=== PATIENT | female | born 1970 | race Caucasian/White ===

== ENCOUNTER 2017-01-11 10:02 | Inpatient (IN) ==
[2017-01-09 17:58] LABS: Appearance,Urine CLEAR; Bacteria,Urine FEW /hpf (0); Bilirubin,Urine NEG (NEG); Color,Urine YELLOW; Glucose,Urine (UA) >=500 mg/dL (NEG); Leukocyte Esterase,Urine NEG /uL (NEG); Mucus,Urine FEW /hpf (0); Nitrate,Urine NEG (NEG); Protein,Urine NEG (NEG); Specific Gravity,Urine 1.031 (1.000-1.035); Urine Blood NEG mg/dL (<0.03); Urine Budding Yeast MANY /hpf (0); Urine RBC 1 /hpf (0-1); Urine Squamous Epithelial Cell 3 /hpf (0-4); Urine WBC 1 /hpf (0-4); Urobilinogen,Urine NEG (NEG)
[2017-01-09 18:44] LABS: Basophils # (Auto) 0 K/mcL (0.0-0.3); Basophils % (Auto) 0.3 % (0.0-2.0); Eosinophils # (Auto) 0.2 K/mcL (0.0-0.7); Eosinophils % (Auto) 1.7 % (0.0-7.0); Granulocytes % (Auto) 65.5 % (38.0-78.0); Lymphocytes # (Auto) 2.7 K/mcL (1.5-4.8); Lymphocytes % (Auto) 25.9 % (15.5-49.0); Mean Corpuscular HGB Conc 33.1 g/dL (31.0-36.0); Mean Corpuscular Hemoglobin 29.2 pg (26.0-34.0); Monocytes # (Auto) 0.7 K/mcL (0.1-0.9); Monocytes % (Auto) 6.6 % (1.0-12.0); Platelet Count 340 K/mcL (140-440); RBC 4.56 M/mcL (4.00-5.20); Red Cell Distribution Width 13.6 % (11.5-14.5)
[2017-01-09 18:49] LABS: Blood Urea Nitrogen 13 mg/dl (6-20)
[~2017-01-11 10:02] MED LIST: ACETAMINOPHEN 500 MG TABLET PO SCH; PREGABALIN 150 MG CAPSULE PO SCH; oxyCODONE 10 MG TAB.ER.12H PO SCH
[2017-01-11] MEDS ORDERED: DEXTROSE 50% 50 ML VIAL IV ONE ×2 (12:42→12:45)
[2017-01-11] MEDS ORDERED: ceFAZolin 1 GM VIAL IV SCH (14:30)
[2017-01-11] MEDS ORDERED: ONDANSETRON 4 MG/2 ML VIAL IV PRN ×2 (15:11→16:20)
[2017-01-11] MEDS ORDERED: TEMAZEPAM 15 MG CAPSULE PO PRN (15:11)
[2017-01-11] MEDS ORDERED: TRANEXAMIC ACID 1,000 MG/10 ML VIAL IV ONE ×2 (15:11→15:15)
[2017-01-11] MEDS ORDERED: POLYETHYLENE GLYCOL 3350 17 GM PACKET PO PRN (15:11)
[2017-01-11] MEDS ORDERED: BISACODYL 10 MG SUPP.RECT PR PRN (15:11)
[2017-01-11] MEDS ORDERED: ACETAMINOPHEN 325 MG TABLET PO PRN (15:11)
[2017-01-11] MEDS ORDERED: BENZOCAINE/MENTHOL 1 LOZENGE PO PRN ×2 (15:11→16:20)
[2017-01-11] MEDS ORDERED: MAGNESIUM HYDROXIDE 30 ML ORAL.SUSP PO PRN (15:11)
[2017-01-11] MEDS ORDERED: FLEETS ADULT ENEMA PR PRN (15:11)
[2017-01-11] MEDS ORDERED: MIDAZOLAM 5 MG/5 ML VIAL IV ONE (15:15)
[2017-01-11] MEDS ORDERED: PROPOFOL 200 MG/20 ML VIAL IV ONE (15:15)
[2017-01-11] MEDS ORDERED: ONDANSETRON 4 MG/2 ML VIAL IV ONE (15:15)
[2017-01-11] MEDS ORDERED: DEXAMETHASONE 10 MG/ML VIAL IV ONE (15:15)
[2017-01-11] MEDS ORDERED: LIDOCAINE HCL/PF 100 MG/5 ML SYRINGE IV ONE (15:15)
[2017-01-11] MEDS ORDERED: fentaNYL 100 MCG/2 ML VIAL IV ONE (15:15)
[2017-01-11] MEDS ORDERED: SUCCINYLCHOLINE 20 MG/ML ML IV ONE (15:15)
--- NOTE | 2017-01-11 15:19 | Brief Operative Note ---
Date of procedure: 01/11/17 Pre-op diagnosis: right hip djd Post-op diagnosis: same Procedure: right gilberto Grafts/Implants: Yes Anesthesia: GETA Complications Description: 01/11/17 15:18 none Surgeon: Cortes Rivera It Analyst: Roger David Estimated blood loss (cc): 20 Tourniquet Time (Minutes): 54 Specimens Removed/Pathology: none sent Condition: stable Disposition: PACU
[2017-01-11] MEDS ORDERED: GENTAMICIN SULFATE 800 MG/20 ML VIAL IR ONE (16:01)
[2017-01-11] MEDS ORDERED: PROMETHAZINE 25 MG/ML VIAL IV PRN (16:20)
[2017-01-11] MEDS ORDERED: PROMETHAZINE 25 MG/ML VIAL IM ONE (16:20)
[2017-01-11] MEDS ORDERED: IPRATROPIUM/ALBUTEROL 3 ML AMPUL.NEB NEB PRN (16:20)
[2017-01-11] MEDS ORDERED: ePHEDrine 50 MG/ML AMPUL IV PRN (16:20)
[2017-01-11] MEDS ORDERED: FLUMAZENIL 0.1 MG/ML ML IV PRN (16:20)
[2017-01-11] MEDS ORDERED: MEPERIDINE 25 MG/ML SYRINGE IV PRN (16:20)
[2017-01-11] MEDS ORDERED: NALOXONE HCL 0.4 MG/ML VIAL IV PRN (16:20)
[2017-01-11] MEDS ORDERED: HYDROmorphone 2 MG/ML SYRINGE IV PRN (16:20)
[2017-01-11] MEDS ORDERED: METOPROLOL TARTRATE 5 MG/5 ML VIAL IV PRN (16:20)
[2017-01-11] MEDS ORDERED: MEPERIDINE 50 MG/ML SYRINGE IM ONE (16:20)
[2017-01-11] MEDS ORDERED: METHOCARBAMOL 1,000 MG/10 ML VIAL IV PRN (16:20)
[2017-01-11] MEDS ORDERED: diphenhydrAMINE 50 MG/ML VIAL IV PRN (16:20)
[2017-01-11] MEDS ORDERED: ATROPINE SULFATE 0.4 MG/ML VIAL IV PRN (16:20)
[2017-01-11] MEDS: fentaNYL 100 MCG/2 ML VIAL IV PRN ×4 (18:24→18:40)
[2017-01-11] MEDS: INSULIN LISPRO 1 UNIT/0.01 ML UNIT SQ SCH ×2 (19:14→22:12)
[2017-01-11] MEDS: LACTATED RINGERS 1,000 ML IV SCH (19:15)
[2017-01-11] MEDS: 0.45 % SODIUM CHLORIDE 1,000 ML IV SCH (19:19)
[2017-01-11] MEDS: HYDROmorphone 2 MG/ML SYRINGE IV PRN ×3 (19:20→23:28)
[2017-01-11] MEDS: PREGABALIN 150 MG CAPSULE PO SCH (20:03)
[2017-01-11] MEDS: DOCUSATE SODIUM 100 MG CAPSULE PO SCH (20:03)
[2017-01-11] MEDS: ASPIRIN 325 MG ENTERIC COATED TABLET PO SCH (20:03)
[2017-01-11] MEDS: HYDROcodone/APAP 10/325MG TABLET PO PRN ×2 (20:03→23:57)
[2017-01-11] MEDS: PANTOPRAZOLE 40 MG TABLET PO SCH (20:03)
[2017-01-11] MEDS: metFORMIN 500 MG TABLET PO SCH ×2 (20:05→22:13)
[2017-01-11] MEDS: POTASSIUM CHLORIDE 10 MEQ TABLET PO SCH (20:06)
[2017-01-11] MEDS: GEMFIBROZIL 600 MG TABLET PO SCH (21:23)
[2017-01-11] MEDS: FISH OIL 1,000 MG CAPSULE PO SCH (21:23)
[2017-01-11] MEDS: MULTIVIT,THER IRON,CA,FA & MIN 1 TABLET PO SCH (21:23)
[2017-01-11] MEDS: KETOROLAC 15 MG/ML VIAL IV PRN (21:24)
[2017-01-11] MEDS: traMADol 50 MG TABLET PO PRN (21:24)
[2017-01-11] MEDS: SENNOSIDES 1 TABLET PO SCH (21:28)
[2017-01-11] MEDS: METOPROLOL TARTRATE 50 MG TABLET PO SCH (22:03)
[2017-01-11] MEDS: 0.9 % SODIUM CHLORIDE 10 ML SYRINGE IV SCH (22:12)
[2017-01-11] MEDS: ceFAZolin 1 GM VIAL IV SCH (22:58)
[2017-01-11] MEDS: METHOCARBAMOL 500 MG TABLET PO PRN (23:30)
[2017-01-12] MEDS: 0.45 % SODIUM CHLORIDE 1,000 ML IV SCH ×4 (01:25→21:20)
[2017-01-12] MEDS: HYDROmorphone 2 MG/ML SYRINGE IV PRN ×2 (01:47→03:40)
[2017-01-12] MEDS: LACTATED RINGERS 1,000 ML IV SCH (02:10)
[2017-01-12] MEDS: KETOROLAC 15 MG/ML VIAL IV PRN ×4 (03:41→22:36)
[2017-01-12] MEDS: HYDROcodone/APAP 10/325MG TABLET PO PRN ×5 (04:56→23:36)
[2017-01-12] MEDS: traMADol 50 MG TABLET PO PRN (05:34)
[2017-01-12] MEDS: METHOCARBAMOL 500 MG TABLET PO PRN ×3 (05:35→19:48)
[2017-01-12] MEDS: 0.9 % SODIUM CHLORIDE 10 ML SYRINGE IV SCH ×3 (05:35→20:20)
[2017-01-12] MEDS: LEVOTHYROXINE 50 MCG TABLET PO SCH (07:39)
[2017-01-12] MEDS: ceFAZolin 1 GM VIAL IV SCH (07:39)
[2017-01-12] MEDS: POTASSIUM CHLORIDE 10 MEQ TABLET PO SCH ×2 (07:39→17:19)
[2017-01-12] MEDS: GEMFIBROZIL 600 MG TABLET PO SCH ×2 (07:39→17:19)
[2017-01-12] MEDS: metFORMIN 500 MG TABLET PO SCH ×2 (07:39→17:19)
[2017-01-12] MEDS: PANTOPRAZOLE 40 MG TABLET PO SCH ×2 (07:39→17:19)
[2017-01-12] MEDS: INSULIN LISPRO 1 UNIT/0.01 ML UNIT SQ SCH ×8 (07:40→19:49)
--- NOTE | 2017-01-12 07:51 | XRay Report ---
HISTORY: Reason for Exam:Post-Op Total Hip FINDINGS: There is a well-positioned right total hip prosthesis. There is no fracture or abnormal soft tissue calcification around the joint. Bilateral fallopian tube clamps are present in the pelvis. Mild arthritis is present at the symphysis pubis. IMPRESSION: Well-positioned right hip prosthesis Interpreted and Authenticated by: Oumar Sethi 01/12/17
[2017-01-12] MEDS: ASPIRIN 325 MG ENTERIC COATED TABLET PO SCH ×2 (08:36→20:19)
[2017-01-12] MEDS: METOPROLOL TARTRATE 50 MG TABLET PO SCH ×2 (08:37→20:19)
[2017-01-12] MEDS: FISH OIL 1,000 MG CAPSULE PO SCH ×2 (08:37→20:19)
[2017-01-12] MEDS: DOCUSATE SODIUM 100 MG CAPSULE PO SCH ×2 (08:37→20:20)
[2017-01-12] MEDS: PREGABALIN 150 MG CAPSULE PO SCH ×3 (08:37→20:19)
[2017-01-12] MEDS ORDERED: INSULIN GLARGINE HUM REC ANLOG SC SCH (09:00)
[2017-01-12] MEDS ORDERED: SPIRONOLACTONE 25 MG TABLET PO SCH (09:00)
[2017-01-12] MEDS ORDERED: LOSARTAN 50 MG TABLET PO SCH (09:00)
[2017-01-12] MEDS ORDERED: LOVASTATIN 20 MG TABLET PO SCH (09:00)
[2017-01-12] MEDS ORDERED: HYDROCODONE BITARTRATE 60 MG PO SCH (09:00)
--- NOTE | 2017-01-12 09:22 | Orthopedic Progress Note ---
Subjective Patient information: Note initiated : 01/12/17 at 9:19 am Service Date, if different from initiated Date: [] Patient: Genie Li 46 y/o F admitted on 01/11/17 for Right Total HIp Arthroplasty. Chief Complaint: [ambulated very well and pain is 4 out of 10 ] Objective Vital signs: Vital Signs Temp Pulse Pulse Pulse Resp BP BP 01/12/17 07:58 98.0 F 16 01/12/17 07:20 72 01/12/17 03:25 98.1 F 75 16 01/12/17 00:00 99.0 F 96 H 24 150/91 01/11/17 23:00 01/11/17 19:12 69 24 130/87 01/11/17 19:00 01/11/17 18:55 84 26 H 127/80 01/11/17 18:45 98.4 F 84 91 H 16 140/76 112/70 01/11/17 18:35 98.4 F 91 H 91 H 16 140/92 112/70 01/11/17 18:20 98.4 F 91 H 92 H 16 139/80 112/70 01/11/17 18:10 98.4 F 91 H 95 H 16 120/68 112/70 01/11/17 18:05 98.4 F 91 H 93 H 16 123/71 112/70 01/11/17 18:00 98.4 F 91 H 91 H 16 111/71 112/70 01/11/17 17:55 98.4 F 75 95 H 16 110/61 112/70 01/11/17 12:00 97.9 F 74 16 108/76 01/11/17 10:30 97.3 F L 75 16 120/82 BP BP Pulse Ox 01/12/17 07:58 126/77 96 01/12/17 07:20 96 01/12/17 03:25 102/67 94 01/12/17 00:00 95 01/11/17 23:00 95 01/11/17 19:12 100 01/11/17 19:00 100 01/11/17 18:55 100 01/11/17 18:45 99 01/11/17 18:35 99 01/11/17 18:20 100 01/11/17 18:10 99 01/11/17 18:05 100 01/11/17 18:00 100 01/11/17 17:55 100 01/11/17 12:00 97 01/11/17 10:30 95 Intake and Output 01/11/17 01/12/17 01/12/17 21:59 05:59 13:59 Intake Total 2600 / 2600 4200 / 4200 1600 / 1600 Output Total 2150 / 2150 700 / 700 Balance 2600 / 2600 2050 / 2050 900 / 900 Intake: IV 1000 / 1000 Sodium Chloride 0.45% 1, 1000 / 1000 000 ml @ 100 mls/hr IV . Q10H CHRISTINE Rx#:[id number] Oral 2600 / 2600 3200 / 3200 1600 / 1600 Output: Void Amount 2150 / 2150 700 / 700 Other: # Voids 1 Weight 265 lb Intake & Output: Intake & Output 01/11/17 01/12/17 01/12/17 21:59 05:59 13:59 Intake Total 2600 / 2600 4200 / 4200 1600 / 1600 Output Total 2150 / 2150 700 / 700 Balance 2600 / 2600 2050 / 2050 900 / 900 Weight 265 lb Intake: IV 1000 / 1000 Sodium Chloride 0.45% 1, 1000 / 1000 000 ml @ 100 mls/hr IV . Q10H CHRISTINE Rx#:[id number] Oral 2600 / 2600 3200 / 3200 1600 / 1600 Output: Void Amount 2150 / 2150 700 / 700 Other: # Voids 1 Incision: Yes healing Incision clean and dry: Yes Dressing: Yes clean Weight bearing status: full Neurological exam IM: Yes oriented X3, Yes neurovascular intact Extremities exam IM: Yes Foot pink and warm, Yes neurovascular intact - Labs CBC & BMP: 01/12/17 05:21 01/09/17 17:04 Labs: 01/12/17 01/09/17 05:21 17:04 Hgb 13.3 Hct 30.9 L 40.1
--- NOTE | 2017-01-12 09:25 | Discharge Summary ---
Ortho Discharge - TKA - Patient Instructions Diet: Regular Diet Activity: activity as tolerated, weight bearing as tolerated Total Knee Protocol: For Total Knee: Start ROM HARRIS with stationary bike or rocking chair. Work on gaining full extension of knee. Posterior dislocation precautions provided. Hip abductor strengthening and gait training instructions provided. Apply Cryocuff as instructed. Dressing Care: Aquacel Ag - leave on for 5 days Patient Education: Total Hip Replacement (DC) - Follow Up Plan Follow Up Appointments: Jose Alberto Hutton PA-C [Physician Torque Tester] - 01/24/17 1:00 pm Disposition: Home, Self-Care Prognosis: Good Rehab Potential: Good I certify that the patient requires SNF services: No Overall status at discharge: patient is progressing back to baseline - Orders For Discharge Additional Discharge Orders: Physical Therapy at Discharge - TKA Location: Determined By Patient Toilet Riser Discharge Order Location: Determined By Patient Walker Location: Determined By Patient
[2017-01-12] MEDS ORDERED: DEXTROSE 50% 50 ML VIAL IV PRN (11:26)
[2017-01-12] MEDS: MULTIVIT,THER IRON,CA,FA & MIN 1 TABLET PO SCH (20:19)
[2017-01-12] MEDS: SENNOSIDES 1 TABLET PO SCH (20:20)
[2017-01-13] MEDS: HYDROcodone/APAP 10/325MG TABLET PO PRN ×4 (03:41→16:53)
[2017-01-13] MEDS: METHOCARBAMOL 500 MG TABLET PO PRN (03:41)
[2017-01-13] MEDS: KETOROLAC 15 MG/ML VIAL IV PRN ×2 (05:36→12:53)
[2017-01-13] MEDS: 0.9 % SODIUM CHLORIDE 10 ML SYRINGE IV SCH ×2 (05:37→14:12)
[2017-01-13] MEDS: LEVOTHYROXINE 50 MCG TABLET PO SCH (06:37)
[2017-01-13] MEDS: PANTOPRAZOLE 40 MG TABLET PO SCH (06:37)
[2017-01-13] MEDS: INSULIN LISPRO 1 UNIT/0.01 ML UNIT SQ SCH ×4 (07:47→11:44)
[2017-01-13] MEDS: GEMFIBROZIL 600 MG TABLET PO SCH (07:51)
[2017-01-13] MEDS: metFORMIN 500 MG TABLET PO SCH (07:52)
[2017-01-13] MEDS: POTASSIUM CHLORIDE 10 MEQ TABLET PO SCH (07:52)
[2017-01-13] MEDS ORDERED: LOSARTAN 50 MG TABLET PO SCH (08:00)
[2017-01-13] MEDS ORDERED: HYDROCODONE BITARTRATE 60 MG PO SCH (08:00)
[2017-01-13] MEDS ORDERED: INSULIN GLARGINE HUM REC ANLOG SC SCH ×2 (08:00→09:00)
[2017-01-13] MEDS ORDERED: LOVASTATIN 20 MG TABLET PO SCH (08:00)
[2017-01-13] MEDS ORDERED: SPIRONOLACTONE 25 MG TABLET PO SCH (08:00)
[2017-01-13] MEDS: DOCUSATE SODIUM 100 MG CAPSULE PO SCH (08:07)
[2017-01-13] MEDS ORDERED: INSULIN GLARGINE SQ SCH (09:00)
[2017-01-13] MEDS: FISH OIL 1,000 MG CAPSULE PO SCH (09:03)
[2017-01-13] MEDS: PREGABALIN 150 MG CAPSULE PO SCH ×2 (09:03→15:29)
[2017-01-13] MEDS: METOPROLOL TARTRATE 50 MG TABLET PO SCH (09:04)
[2017-01-13] MEDS: ASPIRIN 325 MG ENTERIC COATED TABLET PO SCH (09:04)
--- NOTE | 2017-01-14 09:38 | Operative Note ---
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 PROCEDURE: Right total hip arthroplasty. SURGEON: Cortes Rivera MD. TEST SKEIN WINDER: Rodríguez David PA-C. ANESTHESIA: General LMA anesthesia. COMPLICATIONS: None. DESCRIPTION OF PROCEDURE: The patient was brought to the operating room and put to sleep with general LMA anesthesia. Once asleep, the patient had the right hip sterilely prepped in a left lateral position. We made a superior posterior approach through this. Prior to the incision we confirmed the operative site. Preop antibiotics had been given. Tranexamic acid had been given. We went through the fatty layer about 3 inches, incised through the gluteal medius and dislocated the hip after releasing the superior capsule. Once done, we then made the neck cut at 32 mm from the center of hip rotation. We reamed up the hip to a size 50, implanted a 50 cup with one 30 mm screw. We then broached up the femur to a size 3 stem. We took pictures. It appeared that it was slightly longer. We repositioned the cup by reaming more medial. Because of the hip dysplasia it did not cover the cup well. We seated the cup very nicely and then placed a 30 mm screw, in 20 degrees of anteversion and 40 degrees of inclination. Once this was done, we then placed the final implant. Stem was a size 3 stem with a neutral neck length, ceramic. The patient tolerated this well without complication. We closed the fascial layer with stitches and the skin with two layers of stitches. Sterile bandage applied. 3-0 Monocryl for the skin. RBH:elkin Job ID: [id number] Doc ID: [id number] Cortes Rivera MD
== END 2017-01-13 17:00 | disposition home or self-care (01) | DRG 470 ==
LOC: MEDSUR 10:02
PROVIDERS: ADMIT Orthopaedic Surgery; ATTEND Orthopaedic Surgery

== ENCOUNTER 2019-08-01 16:32 | Observation (INO) ==
[2019-08-01] MEDS ORDERED: IOPAMIDOL 100 ML BOTTLE IV ONE (16:33)
[2019-08-01] MEDS ORDERED: ONDANSETRON 4 MG/2 ML VIAL IV ONE ×2 (16:57→20:31)
[2019-08-01] MEDS ORDERED: 0.9 % SODIUM CHLORIDE 1,000 ML IV ONE ×2 (16:57→19:07)
--- NOTE | 2019-08-01 17:01 | Emergency Department Note ---
Nausea/Vomiting/Diarrhea HPI - General Chief complaint: Nausea/Vomiting/Diarrhea Stated complaint: Diarrhea Time Seen by Provider: 08/01/19 16:50 Source: patient Mode of arrival: ambulatory Limitations: no limitations - History of Present Illness HPI Narrative: 49-year-old female is been having belly pain nausea vomiting diarrhea since this morning. She started having crampy belly pain yesterday but this morning she was having watery diarrhea as well as clear emesis. No new foods but she has been around her sick grandchildren. She notes that she is an insulin-dependent diabetic with known gastroparesis - Related Data Home Medications Medication Instructions Recorded Confirmed Insulin Lispro [HumaLOG] 0 unit SQ ACHS 01/09/17 08/01/19 Levothyroxine [Synthroid] 50 mcg PO ACB 01/09/17 08/01/19 Losartan [Cozaar] 100 mg PO DAILY 01/09/17 08/01/19 Methocarbamol [Robaxin] 500 mg PO QIDP PRN 01/09/17 08/01/19 Metoprolol Tartrate [Lopressor] 50 mg PO BID 01/09/17 08/01/19 Multivit,Th Iron,Other Min 3 tab PO HS 01/09/17 01/11/17 [Complete Multivitamin] [place]-3 Fatty Acids/Fish Oil 3 cap PO BID 01/09/17 08/01/19 [[place] 3 Fish Oil Softgel] Potassium Chloride 10 meq PO BIDCC 01/09/17 08/01/19 Spironolactone [Aldactone] 25 mg PO DAILY 01/09/17 08/01/19 metFORMIN [Glucophage] 500 mg PO DAILY 01/09/17 08/01/19 Toujeo Solostar 80 units SQ DAILY 12/29/17 08/01/19 Gabapentin [Neurontin] 900 mg PO TID 10/03/18 08/01/19 traMADol [Ultram] 100 mg TID 10/03/18 08/01/19 lovastatin 20 mg tablet 20 mg PO QHS tab 07/17/19 08/01/19 Hysingla ER 60 mg DAILY 08/01/19 08/01/19 Omeprazole [PriLOSEC] 20 mg PO DAILY 08/01/19 08/01/19 Ondansetron [Zofran ODT] 8 mg SL Q4-6HP PRN 08/01/19 08/01/19 Allergies Allergy/AdvReac Type Severity Reaction Status Date / Time sucralfate [From Carafate] Allergy Mild Hives Verified 05/18/19 15:05 dexlansoprazole AdvReac Intermediate Vomiting Verified 05/18/19 15:05 [From Dexilant] sumatriptan [From Imitrex] AdvReac Intermediate Vomiting Verified 05/18/19 15:05 Amoxicillin [From Augmentin] AdvReac Mild Rash Verified 05/18/19 15:05 atorvastatin AdvReac Mild Rash Verified 05/18/19 15:05 Azelastine [From Astelin] AdvReac Mild Rash Verified 05/18/19 15:05 buprenorphine [From Butrans] AdvReac Mild Hives Verified 05/18/19 15:05 clavulanic acid AdvReac Mild Rash Verified 05/18/19 15:05 [From Augmentin] Cyclobenzaprine AdvReac Mild Vomiting Verified 05/18/19 15:05 [From Flexeril] iron AdvReac Mild Hives Verified 05/18/19 15:05 morphine AdvReac Mild Vomiting Verified 05/18/19 15:05 oxycodone [Oxycodone] AdvReac Mild Itching Verified 05/18/19 15:05 Sulfa (Sulfonamide AdvReac Mild Itching Verified 05/18/19 15:05 Antibiotics) Review of Systems All systems ED: reviewed and negative except as stated. Past Medical History - Past Medical History Attestation: Yes: The following information was validated with the patient. [facility] Narrative: Medical History (Last Updated 05/18/19 @ 15:23 by Kamari Diallo DO) Abdominal pain (Resolved) Atypical chest pain (Resolved) Medical history: Reports: chronic narcotics, DM (With neuropathy and gastroparesis), fibromyalgia, hyperlipidemia, hypertension, hypothyroidism, migraine Psychiatric history: Reports: anxiety, depression Surgical history ED: Reports: breast surgery (Reduction), hysterectomy, orthopedic, other (Cervical spine fusion, bilateral carpal tunnel, bilateral bunions, total hip, shoulder), other (Lasik eye surgery) - Social History smoking status: Former smoker Alcohol use: Reports: Rarely Drug use: Reports: none Physical Exam Obese female. Normocephalic atraumatic. Conjunctive are clear sclera white nonicteric. No nasal discharge or congestion. Oropharynx pink and moist. Neck is supple without lymphadenopathy but she might have a mild goiter. No carotid bruit. Heart is regular rate and rhythm no murmur appreciated. Lungs clear to auscultation bilaterally without wheezes rales rhonchi or respiratory distress. Abdomen is diffusely tender but worse in the epigastrium. Some guarding. Alert and able to answer questions appropriately. Limitations: no limitations Course Vital Signs Temperature 97.9 F 08/01/19 16:32 Pulse Rate 101 H 08/01/19 16:32 Respiratory Rate 28 H 08/01/19 16:32 Blood Pressure 119/82 08/01/19 16:32 Pulse Oximetry (%) 98 08/01/19 16:32 Temperature 97.9 F 08/01/19 16:32 Pulse Rate 97 H 08/01/19 21:49 Respiratory Rate 12 08/01/19 21:01 Blood Pressure 149/91 08/01/19 21:39 Pulse Oximetry (%) 100 08/01/19 21:49 Nausea/Vomiting/Diarrhea - Lab Data Lab results reviewed: Yes I reviewed the patient's lab results. Result diagrams: 08/01/19 17:36 08/01/19 17:36 Lab Results 08/01/19 08/01/19 08/01/19 Range/Units 17:30 17:36 17:36 WBC 8.6 (4.5-11.0) K/mcL RBC 5.10 (4.00-5.20) M/mcL Hgb 15.1 H (12.0-15.0) g/dL Hct 45.0 (36.0-48.0) % POC Hct 46.0 (36.0-48.0) % MCV 88.2 (80.0-100.0) fL MCH 29.7 (26.0-34.0) pg MCHC 33.7 (31.0-36.0) g/dL RDW 12.8 (11.5-14.5) % Plt Count 276 (140-440) K/mcL MPV 8.1 (7.4-10.4) fL Gran % 84.7 H (38.0-78.0) % Lymph % (Auto) 10.4 L (15.5-49.0) % [place] % (Auto) 4.6 (1.0-12.0) % Eos % (Auto) 0.1 (0.0-7.0) % Baso % (Auto) 0.2 (0.0-2.0) % Gran # 7.3 (1.8-8.0) K/mcL Lymph # (Auto) 0.9 L (1.5-4.8) K/mcL [place] # (Auto) 0.4 (0.1-0.9) K/mcL Eos # (Auto) 0 (0.0-0.7) K/mcL Baso # (Auto) 0 (0.0-0.3) K/mcL VBG Lactic Acid (0.5-2.0) mmol/L POC Sodium 141 (133-145) mmol/L Sodium 141 (133-145) mmol/L POC Potassium 3.6 (3.3-5.1) mmol/L Potassium 3.7 (3.3-5.1) mmol/L POC Chloride 106 (96-108) mmol/L Chloride 101 (96-108) mmol/L Carbon Dioxide 18 L (22-30) mmol/L POC Total CO2 19 L (22-30) mmol/L Anion Gap 22.0 H (8-16) POC BUN 11 (6-20) mg/dl BUN 11 (6-20) mg/dl Creatinine 0.7 (0.6-1.1) mg/dl POC Creatinine 0.6 (0.6-1.1) mg/dl GFR Calculation 100 Glucose 159 H (70-105) mg/dL POC Glucose 160 H (70-105) mg/dL Calcium 9.8 (8.6-10.4) mg/dl POC WB Ioniz Calcium 1.12 L (1.16-1.32) mmol/L Total Bilirubin 1.0 (0.0-1.0) mg/dL AST 50 H (0-37) U/l ALT 64 H (0-40) U/l Alkaline Phosphatase 93 (39-117) U/L Total Protein 8.2 (5.9-8.4) gm/dL Albumin 4.8 (3.2-5.2) gm/dL Globulin 3.4 (2.2-3.7) gm/dL Albumin/Globulin Ratio 1.4 (1.0-2.3) Amylase 43 (28-100) U/L Lipase 26 (7-60) U/L Urine Color Yellow Urine Appearance Clear Urine pH 5.0 (5.0-9.0) Ur Specific [place] 1.036 H (1.000-1.035) Urine Protein 100 A (NEG) mg/dL Urine Glucose (UA) >=500 A (NEG) mg/dL Urine Ketones 80 A (NEG) mg/dL Urine Occult Blood Neg (<0.03) mg/dL Urine Nitrate Neg (NEG) Urine Bilirubin Neg (NEG) mg/dL Urine Urobilinogen Neg (NEG) mg/dL Ur Leukocyte Esterase Neg (NEG) /uL Urine RBC 1 (0-1) /hpf Urine WBC 1 (0-4) /hpf Ur Squamous Epith Cells 4 (0-4) /hpf Urine Bacteria Few A (0) /hpf Urine Mucus Few (0) /hpf Urine Yeast (Budding) Few A (0) /hpf Ur Culture Indicated? Yes 08/01/19 Range/Units 17:36 WBC (4.5-11.0) K/mcL RBC (4.00-5.20) M/mcL Hgb (12.0-15.0) g/dL Hct (36.0-48.0) % POC Hct (36.0-48.0) % MCV (80.0-100.0) fL MCH (26.0-34.0) pg MCHC (31.0-36.0) g/dL RDW (11.5-14.5) % Plt Count (140-440) K/mcL MPV (7.4-10.4) fL Gran % (38.0-78.0) % Lymph % (Auto) (15.5-49.0) % [place] % (Auto) (1.0-12.0) % Eos % (Auto) (0.0-7.0) % Baso % (Auto) (0.0-2.0) % Gran # (1.8-8.0) K/mcL Lymph # (Auto) (1.5-4.8) K/mcL [place] # (Auto) (0.1-0.9) K/mcL Eos # (Auto) (0.0-0.7) K/mcL Baso # (Auto) (0.0-0.3) K/mcL VBG Lactic Acid 2.2 H (0.5-2.0) mmol/L POC Sodium (133-145) mmol/L Sodium (133-145) mmol/L POC Potassium (3.3-5.1) mmol/L Potassium (3.3-5.1) mmol/L POC Chloride (96-108) mmol/L Chloride (96-108) mmol/L Carbon Dioxide (22-30) mmol/L POC Total CO2 (22-30) mmol/L Anion Gap (8-16) POC BUN (6-20) mg/dl BUN (6-20) mg/dl Creatinine (0.6-1.1) mg/dl POC Creatinine (0.6-1.1) mg/dl GFR Calculation Glucose (70-105) mg/dL POC Glucose (70-105) mg/dL Calcium (8.6-10.4) mg/dl POC WB Ioniz Calcium (1.16-1.32) mmol/L Total Bilirubin (0.0-1.0) mg/dL AST (0-37) U/l ALT (0-40) U/l Alkaline Phosphatase (39-117) U/L Total Protein (5.9-8.4) gm/dL Albumin (3.2-5.2) gm/dL Globulin (2.2-3.7) gm/dL Albumin/Globulin Ratio (1.0-2.3) Amylase (28-100) U/L Lipase (7-60) U/L Urine Color Urine Appearance Urine pH (5.0-9.0) Ur Specific [place] (1.000-1.035) Urine Protein (NEG) mg/dL Urine Glucose (UA) (NEG) mg/dL Urine Ketones (NEG) mg/dL Urine Occult Blood (<0.03) mg/dL Urine Nitrate (NEG) Urine Bilirubin (NEG) mg/dL Urine Urobilinogen (NEG) mg/dL Ur Leukocyte Esterase (NEG) /uL Urine RBC (0-1) /hpf Urine WBC (0-4) /hpf Ur Squamous Epith Cells (0-4) /hpf Urine Bacteria (0) /hpf Urine Mucus (0) /hpf Urine Yeast (Budding) (0) /hpf Ur Culture Indicated? - Radiology Data Radiology results reviewed: Yes I reviewed the patient's radiology results. CT scan of the abdomen and pelvis with contrast shows no acute cause for her nausea vomiting/belly pain Disposition Pt seen by TRAINING AND DEVELOPMENT SPECIALIST/PA only: No Clinical Impression: Dehydration, Gastroparesis diabeticorum, Candidal urinary tract infection UTI (urinary tract infection) Qualifiers: Urinary tract infection type: acute cystitis Hematuria presence: without hematuria Qualified Code(s): N30.00 - Acute cystitis without hematuria Summary: Start IV fluids nausea medicine. Get CT scan and laboratory Laboratory shows UTI with both bacteria and yeast. Start fluconazole and Rocephin given her nausea and vomiting and inability to tolerate oral antibiotics. Urine with elevated specific gravity (1.036) indicating dehydration likely from nausea and vomiting which in turn is from her gastroparesis plus or minus acute infection. She continued to have belly pain nausea. I discussed results with her. She is not feeling well enough to go home continues to have significant nausea and pain. Try Reglan After getting 2 doses of Zofran and 1 dose of Reglan she was still having significant belly pain so I discussed the case with our hospitalist, Dr. Grant, he recommended we try low-dose ketamine. If she did not tolerate that or if this was not successful he would admit for observation for further care and evaluation After getting the ketamine she had some dysphoria so we gave her 2 mg of Versed. I contacted our hospitalist again. He agreed to come in and evaluate the patient and admit for further evaluation and care in the hospital Disposition: Xfer As Outpt/Obs ([facility]) Condition: Fair Referrals: Janet Allen [Primary Care Provider] -
[2019-08-01] MEDS: HYDROmorphone 2 MG/ML VIAL IV PRN ×3 (17:31→20:37)
[2019-08-01 17:48] LABS: POC Blood Urea Nitrogen 11 mg/dl (6-20); POC CO2 19 mmol/L (22-30); POC Calcium, Ionized 1.12 mmol/L (1.16-1.32); POC Chloride 106 mmol/L (96-108); POC Creatinine 0.6 mg/dl (0.6-1.1); POC Glucose, Random 160 mg/dL (70-105); POC Potassium 3.6 mmol/L (3.3-5.1); POC Sodium 141 mmol/L (133-145)
[2019-08-01 18:25] LABS: Basophils # (Auto) 0 K/mcL (0.0-0.3); Basophils % (Auto) 0.2 % (0.0-2.0); Eosinophils # (Auto) 0 K/mcL (0.0-0.7); Eosinophils % (Auto) 0.1 % (0.0-7.0); Granulocytes % (Auto) 84.7 % (38.0-78.0); Hemoglobin 15.1 g/dL (12.0-15.0); Lymphocytes # (Auto) 0.9 K/mcL (1.5-4.8); Lymphocytes % (Auto) 10.4 % (15.5-49.0); Mean Cell Volume 88.2 fL (80.0-100.0); Mean Corpuscular HGB Conc 33.7 g/dL (31.0-36.0); Mean Platelet Volume 8.1 fL (7.4-10.4); Monocytes # (Auto) 0.4 K/mcL (0.1-0.9); Monocytes % (Auto) 4.6 % (1.0-12.0); Platelet Count 276 K/mcL (140-440); Red Cell Distribution Width 12.8 % (11.5-14.5); WBC 8.6 K/mcL (4.5-11.0)
[2019-08-01 18:31] LABS: Appearance,Urine CLEAR; Bacteria,Urine FEW /hpf (0); Bilirubin,Urine NEG (NEG); Color,Urine YELLOW; Glucose,Urine (UA) >=500 mg/dL (NEG); Ketones,Urine 80 mg/dL (NEG); Leukocyte Esterase,Urine NEG /uL (NEG); Mucus,Urine FEW /hpf (0); Nitrate,Urine NEG (NEG); Protein,Urine 100 mg/dL (NEG); Specific Gravity,Urine 1.036 (1.000-1.035); Urine Blood NEG mg/dL (<0.03); Urine Budding Yeast FEW /hpf (0); Urine RBC 1 /hpf (0-1); Urine Squamous Epithelial Cell 4 /hpf (0-4); Urine WBC 1 /hpf (0-4); Urobilinogen,Urine NEG (NEG)
[2019-08-01 18:36] LABS: Culture Indicated,Urine YES
[2019-08-01 18:55] LABS: ALT/SGPT 64 U/l (0-40); AST/SGOT 50 U/l (0-37); Albumin 4.8 gm/dL (3.2-5.2); Albumin/Globulin Ratio 1.4 (1.0-2.3); Alkaline Phosphatase 93 U/L (39-117); Amylase 43 U/L (28-100); Blood Urea Nitrogen 11 mg/dl (6-20); Calcium 9.8 mg/dl (8.6-10.4); Carbon Dioxide 18 mmol/L (22-30); Chloride 101 mmol/L (96-108); Globulin 3.4 gm/dL (2.2-3.7); Glomerular Filtration Rate 100; Glucose 159 mg/dL (70-105)
[2019-08-01] MEDS ORDERED: cefTRIAXone 1 GM VIAL IV ONE (19:02)
[2019-08-01] MEDS ORDERED: FLUCONAZOLE 200 MG/100 ML BAG IV SCH (19:15)
--- NOTE | 2019-08-01 19:27 | Cat Scan Report ---
CLINICAL INFORMATION: Nausea. Vomiting. Abdominal pain TECHNIQUE: Axial images through the abdomen and pelvis. Oral and intravenous contrast materials were administered COMPARISON: Previous abdominal ultrasound dated 12/06/2017 FINDINGS: Lung bases: No focal pulmonary parenchymal infiltrate or mass. No pleural fluid. There is no pericardial fluid. Liver: Low density liver consistent with hepatic steatosis. There is no focal hepatic mass. Liver contour is smooth. No evidence for cirrhosis. There is no ascites. Gallbladder, biliary: Gallbladder is present. No calcified gallstones. No gallbladder wall thickening. No dilated bile ducts. Common bile duct measures 4 mm Spleen: There is splenomegaly. The spleen measures 12.0 x 15.2 x 5.0 cm. No focal intrasplenic abnormality. Normal enhancement of splenic and portal veins Pancreas: Negative. No pancreatic mass. No peripancreatic abnormality. Pancreatic duct is not dilated Adrenal glands: Negative Kidneys, ureters, bladder: Left kidney is negative. There is a 9 mm upper pole cyst. No solid mass. No left hydronephrosis. There is cortical irregularity in the upper pole of the right kidney consistent with infarct and scarring. This could be postsurgical. Clinical correlation necessary. There is no solid mass. No hydronephrosis. No hydroureter. No ureteral or bladder calculi. Vascular: There is no abdominal aortic aneurysm. Celiac trunk and superior mesenteric artery arises a single-vessel. No stenosis. Lymphatic: No retroperitoneal or mesenteric adenopathy Gastrointestinal: Stomach is negative. Patient has a history of gastroparesis. Stomach is not distended. There is contrast material within duodenum and small bowel. No small bowel dilatation. Colon is negative. No diverticulosis or diverticulitis. No colonic mass identified. Appendix is normal. Reproductive: Previous hysterectomy there are probable right ovarian or paraovarian cysts. Patient has a history of right adnexal cysts. Follow-up ultrasound recommended Mesenteric, peritoneal: No free intraperitoneal fluid. No intra-abdominal abscess. There is no pneumoperitoneum. No biliary or portal venous gas. No pneumatosis. Musculoskeletal, abdominal wall: Small umbilical hernia containing only fat. No inguinal hernia. No lumbar compression deformities. Intervertebral disc spaces are within normal limits. Sacrum and pelvis are negative. Patient has undergone previous right total hip arthroplasty. Left hip is negative. No fracture IMPRESSION: 1. Hepatic steatosis 2. Mild splenomegaly 3. Scarring of the upper pole of the right kidney 4. Right adnexal cysts. Recommend follow-up pelvic ultrasound. Previous hysterectomy 5. Negative appendix. No intra-abdominal abscess Interpreted and Authenticated by: Anoop Genao 08/01/19
[2019-08-01] MEDS ORDERED: METOCLOPRAMIDE 10 MG/2 ML VIAL IV ONE (20:39)
[2019-08-01] MEDS ORDERED: KETAMINE 100 MG/ML ML IV ONE (21:03)
[2019-08-01] MEDS ORDERED: KETAMINE 10 MG/ML ML IV ONE (21:26)
[2019-08-01] MEDS ORDERED: MIDAZOLAM 2 MG/2 ML VIAL IV ONE (21:51)
--- NOTE | 2019-08-01 22:44 | Internal Med History&Physical ---
Medical - H&P: [facility] Patient information: Note initiated : 08/01/19 at 10:42 pm Service Date, if different from initiated Date: [] Patient: Genie Li 49 y/o F admitted on for Diarrhea. Chief Complaint: [] History of present illness: Ms. Li is a 49 year old F 49-year-old female presents the ED with abdominal pain nausea vomiting diarrhea since this morning. Abdominal pain is described as crampy and she is a watery diarrhea. Clear emesis. She feels like she is a diarrhea 50 times. Vomiting less frequent. She has been around sick grandchildren with cough and sore throats. However she does have gastroparesis has had nausea vomiting like this this in the past. She was given IV fluids and multiple antiemetics but continued to have nausea vomiting and she did not feel like she could take care of herself at home and is unable to keep anything down. She did have a sore throat similar to her kids past couple days. And she was having increased burping which she says she has when she develops her flares of her gastroparesis and felt it was coming on. However was relatively fine going to bed yesterday but this morning when she woke up she had nausea vomiting and diarrhea. No fevers or chills. No coughing or shortness of breath. Diarrhea is clear. Review of Systems: Pertinent positives as above. Denies headache/fever/chest pain/cough/dyspnea. Remaining 10 point review of systems reviewed negative Medical - H&P: PMH Medical history: Medical history: Reports: chronic narcotics, DM (With neuropathy and gastr oparesis), fibromyalgia, hyperlipidemia, hypertension, hypothyroidism, migraine Psychiatric history: Reports: anxiety, depression Surgical history ED: Reports: breast surgery (Reduction), hysterectomy, orthopedic, other (Cervical spine fusion, bilateral carpal tunnel, bilateral bunions, total hip, shoulder), other (Lasik eye surgery) smoking status: Former smoker Alcohol use: Reports: Rarely Drug use: Reports: none Medical - H&P: Meds Home Medications Medication Instructions Recorded Confirmed Type Insulin Lispro [HumaLOG] 0 unit SQ ACHS 01/09/17 08/01/19 History Levothyroxine [Synthroid] 50 mcg PO ACB 01/09/17 08/02/19 History Losartan [Cozaar] 100 mg PO DAILY 01/09/17 08/02/19 History Methocarbamol [Robaxin] 500 mg PO QIDP PRN 01/09/17 08/02/19 History Metoprolol Tartrate [Lopressor] 50 mg PO BID 01/09/17 08/02/19 History [place]-3 Fatty Acids/Fish Oil 2 cap PO BID 01/09/17 08/02/19 History [[place] 3 Fish Oil Softgel] Potassium Chloride 10 meq PO BIDCC 01/09/17 08/02/19 History Spironolactone [Aldactone] 25 mg PO DAILY 01/09/17 08/02/19 History metFORMIN [Glucophage] 1,000 mg PO DAILY 01/09/17 08/02/19 History Toujeo Solostar 80 units SQ DAILY 12/29/17 08/02/19 History Gabapentin [Neurontin] 900 mg PO TID 10/03/18 08/02/19 History traMADol [Ultram] 100 mg TID 10/03/18 08/02/19 History lovastatin 20 mg tablet 60 mg PO QHS tab 07/17/19 08/02/19 History Hysingla ER 60 mg DAILY 08/01/19 08/02/19 History Omeprazole [PriLOSEC] 20 mg PO DAILY 08/01/19 08/02/19 History Ondansetron [Zofran ODT] 8 mg SL Q4-6HP PRN 08/01/19 08/02/19 History Calcium Carbonate/Vitamin D3 2 each PO BID 08/02/19 08/02/19 History [Calcium 500+D Tablet Chew] Cetirizine HCl [Zyrtec] 10 mg PO PRN PRN 08/02/19 08/02/19 History Empagliflozin [Jardiance] 25 mg PO DAILY 08/02/19 08/02/19 History Pantoprazole [Protonix] 40 mg PO QAMAC 08/02/19 08/02/19 History Allergies Allergy/AdvReac Type Severity Reaction Status Date / Time sucralfate [From Carafate] Allergy Mild Hives Verified 05/18/19 15:05 vitamin E (d-alpha Allergy Mild Rash Verified 08/02/19 02:26 tocopherol) ketamine AdvReac Severe Hallucinati Verified 08/02/19 00:44 ng dexlansoprazole AdvReac Intermediate Vomiting Verified 05/18/19 15:05 [From Dexilant] morphine AdvReac Intermediate Vomiting Verified 08/02/19 00:43 sumatriptan [From Imitrex] AdvReac Intermediate Vomiting Verified 05/18/19 15:05 Amoxicillin [From Augmentin] AdvReac Mild Rash Verified 05/18/19 15:05 atorvastatin AdvReac Mild Rash Verified 05/18/19 15:05 Azelastine [From Astelin] AdvReac Mild Rash Verified 05/18/19 15:05 buprenorphine [From Butrans] AdvReac Mild Hives Verified 05/18/19 15:05 clavulanic acid AdvReac Mild Rash Verified 05/18/19 15:05 [From Augmentin] Cyclobenzaprine AdvReac Mild Vomiting Verified 05/18/19 15:05 [From Flexeril] iron AdvReac Mild Hives Verified 05/18/19 15:05 oxycodone [Oxycodone] AdvReac Mild Rash Verified 08/02/19 00:43 Sulfa (Sulfonamide AdvReac Mild Rash Verified 08/02/19 00:43 Antibiotics) Medical - H&P: Exam - Constitutional Vitals: Temp Pulse Resp BP Pulse Ox 97.9 F 97 H 12 149/91 100 08/01/19 16:32 08/01/19 21:49 08/01/19 21:01 08/01/19 21:39 08/01/19 21:49 Exam: General: Alert, Awake, No acute Distress, obese Eyes/N/T: EOMI, PEERL, DMM Head/Neck: neck supple, normocephalic atraumatic CV: RRR, 1/6 SM, normal s1/s2 Pulm: Clear b/l, no wheezing/rhonchi/rales Abd: soft, mild TTP underlies, BS x4 Ext: no clubbing/cyanosis/edema Neuro: Alert, no focal deficits, moves all extremities, CN 2-12 grossly intact, symmetrical strength b/l upper/lower, sensations intact b/l upper/lower Skin: warm/dry Medical - H&P: Reslt - Labs CBC & Chem 7: 08/02/19 04:44 08/02/19 04:44 Labs: Short CBC 08/01/19 Range/Units 17:36 WBC 8.6 (4.5-11.0) K/mcL Hgb 15.1 H (12.0-15.0) g/dL Hct 45.0 (36.0-48.0) % Plt Count 276 (140-440) K/mcL BMP 08/01/19 17:36 Sodium 141 Potassium 3.7 Chloride 101 Carbon Dioxide 18 L BUN 11 Creatinine 0.7 Glucose 159 H Calcium 9.8 Liver Function 08/01/19 Range/Units 17:36 Total Bilirubin 1.0 (0.0-1.0) mg/dL AST 50 H (0-37) U/l ALT 64 H (0-40) U/l Alkaline Phosphatase 93 (39-117) U/L Albumin 4.8 (3.2-5.2) gm/dL Urine 08/01/19 Range/Units 17:30 Urine Color Yellow Urine Appearance Clear Urine pH 5.0 (5.0-9.0) Ur Specific [place] 1.036 H (1.000-1.035) Urine Protein 100 A (NEG) mg/dL Urine Glucose (UA) >=500 A (NEG) mg/dL - Impressions CT abdomen pelvis no acute pathology Medical - H&P: A/P - Narrative A/P Narrative: A: *Intractable nausea/vomiting & diarrhea: 2/2 gastroparesis versus gastroenteritis -CT a/p no acute path *Volume depletion w/hemoconcentration: *DM w/Neuropathy and Gastroparesis: *Fibromyalgia/depression/anxiety: *Obesity: *HTN: *Opioid dependence: *Hypothyroidism: *GERD: *Fatty liver: P: -IVF -npo tonight -Antiemetics including Benadryl and Reglan -Stool studies - -cont home ARB/BB, hold aldactone -SSI and home basal insulin -ppx: lovenox/home ppi Full code
[2019-08-02] MEDS ORDERED: 0.9 % SODIUM CHLORIDE 1,000 ML IV SCH (00:24)
[2019-08-02] MEDS ORDERED: DEXTROSE 50% 50 ML VIAL IV PRN (00:24)
[2019-08-02] MEDS ORDERED: POTASSIUM CHLORIDE 40 MEQ in DEXTROSE 5% IN WATER 500 ML IV PRN (00:24)
[2019-08-02] MEDS ORDERED: ACETAMINOPHEN 325 MG TABLET PO PRN (00:24)
[2019-08-02] MEDS ORDERED: PROMETHAZINE 25 MG SUPP.RECT PR PRN (00:24)
[2019-08-02] MEDS ORDERED: diphenhydrAMINE 50 MG/ML VIAL IV ONE (00:24)
[2019-08-02] MEDS ORDERED: MAGNESIUM SULFATE 2 GM/50 ML BAG IV PRN (00:24)
[2019-08-02] MEDS ORDERED: LORazepam 2 MG/ML VIAL IV PRN (00:24)
[2019-08-02] MEDS ORDERED: HYDROcodone/APAP 5/325MG TABLET PO PRN (00:24)
[2019-08-02] MEDS ORDERED: DEXTROSE 31 GM ORAL.SUSP PO PRN (00:24)
[2019-08-02] MEDS ORDERED: diphenhydrAMINE 50 MG/ML VIAL IV PRN (00:24)
[2019-08-02] MEDS ORDERED: IPRATROPIUM/ALBUTEROL 3 ML AMPUL.NEB NEB PRN (00:24)
[2019-08-02] MEDS ORDERED: POTASSIUM CHLORIDE 20 MEQ TABLET PO PRN ×2 (00:24)
[2019-08-02] MEDS ORDERED: LABETALOL 5 MG/ML ML IV PRN (00:24)
[2019-08-02] MEDS ORDERED: METOCLOPRAMIDE 10 MG/2 ML VIAL ONE (01:41)
[2019-08-02] MEDS ORDERED: LORazepam 2 MG/ML VIAL ONE (01:43)
[2019-08-02] MEDS: 0.9 % SODIUM CHLORIDE 10 ML SYRINGE IV SCH ×5 (02:10→21:52)
[2019-08-02] MEDS: METOCLOPRAMIDE 10 MG/2 ML VIAL IV SCH ×3 (02:11→14:42)
[2019-08-02] MEDS ORDERED: HYDROcodone/APAP 5/325MG TABLET PO ONE (04:25)
[2019-08-02] MEDS: METHOCARBAMOL 500 MG TABLET PO PRN ×3 (04:30→18:28)
[2019-08-02 05:50] LABS: Basophils # (Auto) 0 K/mcL (0.0-0.3); Basophils % (Auto) 0.2 % (0.0-2.0); Eosinophils # (Auto) 0.1 K/mcL (0.0-0.7); Eosinophils % (Auto) 0.9 % (0.0-7.0); Hematocrit 38.1 % (36.0-48.0); Hemoglobin 12.9 g/dL (12.0-15.0); Lymphocytes # (Auto) 1.7 K/mcL (1.5-4.8); Lymphocytes % (Auto) 21.5 % (15.5-49.0); Mean Cell Volume 89.4 fL (80.0-100.0); Mean Corpuscular HGB Conc 33.9 g/dL (31.0-36.0); Mean Platelet Volume 7.9 fL (7.4-10.4); Monocytes # (Auto) 0.7 K/mcL (0.1-0.9); Monocytes % (Auto) 8.4 % (1.0-12.0); Platelet Count 246 K/mcL (140-440); RBC 4.26 M/mcL (4.00-5.20); Red Cell Distribution Width 13.6 % (11.5-14.5)
[2019-08-02 06:25] LABS: ALT/SGPT 50 U/l (0-40); AST/SGOT 36 U/l (0-37); Albumin 4.4 gm/dL (3.2-5.2); Albumin/Globulin Ratio 1.5 (1.0-2.3); Alkaline Phosphatase 79 U/L (39-117); Bilirubin,Direct < 0.2 mg/dL (0.0-0.3); Bilirubin,Total 0.7 mg/dL (0.0-1.0); Blood Urea Nitrogen 9 mg/dl (6-20); Calcium 8.7 mg/dl (8.6-10.4); Carbon Dioxide 19 mmol/L (22-30); Chloride 103 mmol/L (96-108); Globulin 2.9 gm/dL (2.2-3.7); Glomerular Filtration Rate 106; Glucose 154 mg/dL (70-105); Lactate Dehydrogenase 175 U/L (94-250); Phosphorous 2.3 mg/dL (2.7-4.5); Triglycerides 196 mg/dl (<150); Uric Acid 6.1 mg/dL (2.5-8.0)
[2019-08-02] MEDS: LEVOTHYROXINE 50 MCG TABLET PO SCH (07:36)
[2019-08-02] MEDS: INSULIN LISPRO 1 UNIT/0.01 ML UNIT SQ SCH ×4 (07:40→21:40)
[2019-08-02] MEDS: traMADol 50 MG TABLET PO PRN ×2 (07:51→14:50)
[2019-08-02] MEDS ORDERED: HYDROmorphone 2 MG/ML VIAL IV PRN (08:06)
--- NOTE | 2019-08-02 08:10 | Internal Med Progress Note ---
Medical - PN: Subj Patient information: Note initiated : 08/02/19 at 8:04 am Service Date, if different from initiated Date: [] Patient: Genie Li 49 y/o F admitted on 08/02/19 for Diarrhea. Chief Complaint: [] Interval history: History of present illness: Ms. Li is a 49 year old F 49-year-old female presents the ED with abdominal pain nausea vomiting diarrhea since this morning. Abdominal pain is described as crampy and she is a watery diarrhea. Clear emesis. She feels like she is a diarrhea 50 times. Vomiting less frequent. She has been around sick grandchildren with cough and sore throats. However she does have gastroparesis has had nausea vomiting like this this in the past. She was given IV fluids and multiple antiemetics but continued to have nausea vomiting and she did not feel like she could take care of herself at home and is unable to keep anything down. She did have a sore throat similar to her kids past couple days. And she was having increased burping which she says she has when she develops her flares of her gastroparesis and felt it was coming on. However was relatively fine going to bed yesterday but this morning when she woke up she had nausea vomiting and diarrhea. No fevers or chills. No coughing or shortness of breath. Diarrhea is clear. 08/02 Feeling better. No nausea vomitus morning. But did have diarrhea overnight. Was able to get a little bit of sleep. Still very tired and weak. C. difficile negative and fecal WBCs noted but rare. Abdominal muscle wall still pump operator from vomiting but improved. Review of Systems: denies headache/fever/chills/nausea/vomiting/chest pain/cough/dyspnea.. Otherwi se see above. - Constitutional Vitals: Vital Signs Temp Pulse Resp BP Pulse Ox 98.2 F 107 H 18 122/70 98 08/02/19 04:24 08/02/19 04:24 08/02/19 04:24 08/02/19 04:24 08/02/19 04:24 Period Temp Pulse Resp BP Sys/Null Pulse Ox Last 24 Hr 97.9 F-98.7 F 83-109 11-28 114-160/68-99 97-100 Intake and Output 08/01/19 08/02/19 08/02/19 21:59 05:59 13:59 Intake Total 1082 1000 Output Total 200 Balance 1082 800 Weight 117.934 kg 117.072 kg Intake & Output: Intake & Output 08/01/19 08/02/19 08/02/19 21:59 05:59 13:59 Intake Total 1082 1000 Output Total 200 Balance 1082 800 Weight 117.934 kg 117.072 kg Intake: IV 1082 1000 Sodium Chloride 0.9% 1,000 ml @ 1000 1000 Wide Open IV BOLUS ONE Rx#: [id number] Output: Stool 200 Other: Stool Size Moderate Stool Color Green Stool Consistency Liquid Watery # Bowel Movements 1 Exam: General: Alert, Awake, No acute Distress, obese Eyes/N/T: EOMI, Head/Neck: neck supple, CV: RRR, 1/6 SM, Pulm: Clear b/l, no wheezing/rhonchi/rales Abd: soft, minimal TTP generalized, BS x4 Ext: no clubbing/cyanosis/edema Neuro: Alert, no focal deficits, moves all extremities, Skin: warm/dry Medical - PN: Obj Da - Labs CBC & Chem 7: 08/02/19 04:44 08/02/19 04:44 Labs: Abnormal Lab Results 08/02/19 08/01/19 08/01/19 04:44 17:36 17:36 Hgb Gran % Lymph % (Auto) Lymph # (Auto) VBG Lactic Acid 2.2 H Carbon Dioxide 19 L 18 L POC Total CO2 19 L Anion Gap 17.0 H 22.0 H Glucose 154 H 159 H POC Glucose 160 H POC WB Ioniz Calcium 1.12 L Phosphorus 2.3 L GGT 44 H AST 50 H ALT 50 H 64 H Triglycerides 196 H Ur Specific [place] Urine Protein Urine Glucose (UA) Urine Ketones Urine Bacteria Urine Yeast (Budding) 08/01/19 08/01/19 17:36 17:30 Hgb 15.1 H Gran % 84.7 H Lymph % (Auto) 10.4 L Lymph # (Auto) 0.9 L VBG Lactic Acid Carbon Dioxide POC Total CO2 Anion Gap Glucose POC Glucose POC WB Ioniz Calcium Phosphorus GGT AST ALT Triglycerides Ur Specific [place] 1.036 H Urine Protein 100 A Urine Glucose (UA) >=500 A Urine Ketones 80 A Urine Bacteria Few A Urine Yeast (Budding) Few A Meds: Medications Acetaminophen (Tylenol) 650 mg PO Q6HP PRN PRN Reason: PAIN/FEVER > 101 Hydrocodone Bitart/Acetaminophen ([place] 5/325mg) 1 tab PO Q4HP PRN PRN Reason: PAIN LEVEL 3-6 Albuterol/Ipratropium (Duoneb) 3 ml NEB Q4HP PRN PRN Reason: Shortness Of Breath Dextrose (Dextrose 50%) 0 ml IV UD PRN PRN Reason: Hypoglycemia Diagnostic Test (Pha) (Accu-Chek) 1 each FS ACHS [facility] Last Admin: 08/02/19 07:40 Dose: 1 each Documented by: Diphenhydramine HCl (Benadryl) 25 mg IV Q6HP PRN PRN Reason: Allergic Symptoms or nausea/vo Enoxaparin Sodium (Lovenox) 40 mg SQ DAILY [facility] Famotidine (Pepcid) 20 mg IV Q12 [facility] Gabapentin (Neurontin) 900 mg PO TID [facility] Glucose (Insta-Glucose) 15 gm PO PRN PRN PRN Reason: Hypoglycemia Potassium Chloride 40 meq/ (Dextrose) 520 mls @ 130 mls/hr IV UD PRN PRN Reason: Potassium < 3 Magnesium Sulfate (Magnesium Sulfate) 2 gm in 50 mls @ 50 mls/hr IV UD PRN PRN Reason: Magnesium </= 1.6 Sodium Chloride (Sodium Chloride 0.9%) 1,000 mls @ 100 mls/hr IV .Q10H [facility] Stop: 08/02/19 10:23 Last Admin: 08/02/19 02:10 Dose: 100 mls/hr Documented by: Insulin Glargine (Lantus) 40 unit SQ DAILY [facility] Insulin Human Lispro (Humalog) 0 unit SQ ACHS [facility]; Protocol Last Admin: 08/02/19 07:40 Dose: Not Given Documented by: Labetalol HCl (Trandate) 0 mg IV Q2HP PRN PRN Reason: Hypertension Levothyroxine Sodium (Synthroid) 50 mcg PO ACB [facility] Last Admin: 08/02/19 07:36 Dose: 50 mcg Documented by: Lorazepam (Ativan) 0.5 mg IV Q6HP PRN PRN Reason: ANXIETY/SEDATION Losartan Potassium (Cozaar) 100 mg PO DAILY [facility] Lovastatin (Mevacor) 20 mg PO QHS [facility] Methocarbamol (Robaxin) 500 mg PO QIDP PRN PRN Reason: Muscle Spasm Last Admin: 08/02/19 04:30 Dose: 500 mg Documented by: Metoclopramide HCl (Reglan) 5 mg IV Q6H [facility] Last Admin: 08/02/19 07:32 Dose: 5 mg Documented by: Metoprolol Tartrate (Lopressor) 50 mg PO BID [facility] Ondansetron HCl (Zofran) 4 mg IV Q4HP PRN PRN Reason: Nausea And Vomiting Hydrocodone Bitartrate [Hysingla Er] 60 Mg Tab 1 dose PO DAILY [facility] Potassium Chloride (Kdur) 40 meq PO UD PRN PRN Reason: Potssium is 3-3.5 Potassium Chloride (Kdur) 40 meq PO UD PRN PRN Reason: Potassium < 3 Promethazine HCl (Phenergan) 25 mg [place] Q6HP PRN PRN Reason: Nausea And Vomiting Sodium Chloride (Saline Flush) 10 ml IV Q8 [facility] Last Admin: 08/02/19 06:01 Dose: Not Given Documented by: Tramadol HCl (Ultram) 100 mg PO TIDP PRN PRN Reason: Pain Last Admin: 08/02/19 07:51 Dose: 100 mg Documented by: Medical - PN: A/P - Time Spent With Patient Total time spent is greater than 50% in coordination of care (as documented) at patient's floor/unit and/or counseling patient: - Narrative A/P Narrative: A: *Intractable nausea/vomiting & diarrhea: 2/2 gastroparesis versus gastroenteritis -CT a/p no acute path; -improving *Volume depletion w/hemoconcentration: improved *DM w/Neuropathy and Gastroparesis: *Fibromyalgia/depression/anxiety: *Obesity: *HTN: *Opioid dependence: *Hypothyroidism: *GERD: *Fatty liver: P: -IVF -clear liquids, gradually advance to low fat/small frequent/insoluble fiber -Antiemetics including Benadryl and Reglan -imodium -cont home ARB/BB, hold aldactone -SSI and home basal insulin -ppx: lovenox/home ppi Full code Medical - PN: Qual - VTE Deep Vein Thrombosis/Pulmonary Embolism Present on Admission: No
[2019-08-02] MEDS ORDERED: INSULIN GLARGINE, HUMAN 1 UNIT/0.01 ML SQ SCH (09:00)
[2019-08-02] MEDS: ENOXAPARIN 40 MG/0.4 ML SYRINGE SQ SCH (09:08)
[2019-08-02] MEDS: LOSARTAN 50 MG TABLET PO SCH (09:09)
[2019-08-02] MEDS: GABAPENTIN 300 MG CAPSULE PO SCH ×3 (09:10→21:51)
[2019-08-02] MEDS: FAMOTIDINE/PF 20 MG/2 ML VIAL IV SCH ×2 (09:10→21:52)
[2019-08-02] MEDS ORDERED: LOPERAMIDE 2 MG CAPSULE PO PRN (09:16)
[2019-08-02] MEDS: METOPROLOL TARTRATE 50 MG TABLET PO SCH ×2 (09:18→21:52)
[2019-08-02] MEDS: HYDROCODONE BITARTRATE 60 MG PO SCH (09:18)
--- NOTE | 2019-08-02 10:01 | Discharge Summary ---
Medical - DS: Prov Patient information: Note initiated : 08/02/19 at 9:59 am Service Date, if different from initiated Date: [] Patient: Genie Li 49 y/o F admitted on 08/02/19 for Diarrhea. Chief Complaint: [] Date of admission: 08/02/19 00:17 Discharge date: 08/03/19 Primary care physician: Janet Allen Consults: 08/01/19 Consult to Physician [CONS] Stat Comment: Consulting Provider: Daljit Grant Reason For Exam: Physician to Consult Medical - DS: Meds - Discharge Medications Prescriptions: Loperamide [Imodium] 2 mg PO PRN PRN #30 cap PRN Reason: Diarrhea Transmission Status: Pending to [facility] Active and Home Medications: Home Medications Insulin Lispro [HumaLOG] 0 unit SQ ACHS 01/09/17 [History Confirmed 08/01/19 Last Taken 12/29/17] Levothyroxine [Synthroid] 50 mcg PO ACB 01/09/17 [History Confirmed 08/02/19 Last Taken 07/31/19 08:00] Losartan [Cozaar] 100 mg PO DAILY 01/09/17 [History Confirmed 08/02/19 Last Taken 07/31/19 08:00] Methocarbamol [Robaxin] 500 mg PO QIDP PRN 01/09/17 [History Confirmed 08/02/19 Last Taken 08/01/19 00:00] Metoprolol Tartrate [Lopressor] 50 mg PO BID 01/09/17 [History Confirmed 08/02/19 Last Taken 07/31/19 13:00] [place]-3 Fatty Acids/Fish Oil [[place] 3 Fish Oil Softgel] 2 cap PO BID 01/09/17 [History Confirmed 08/02/19 Last Taken 07/31/19 13:00] Potassium Chloride 10 meq PO BIDCC 01/09/17 [History Confirmed 08/02/19 Last Taken 07/31/19 13:00] Spironolactone [Aldactone] 25 mg PO DAILY 01/09/17 [History Confirmed 08/02/19 Last Taken 07/31/19 08:00] metFORMIN [Glucophage] 1,000 mg PO DAILY 01/09/17 [History Confirmed 08/02/19 Last Taken 07/31/19 08:00] Toujeo Solostar 80 units SQ DAILY 12/29/17 [History Confirmed 08/02/19 Last Taken 07/30/19 08:00] Gabapentin [Neurontin] 900 mg PO TID 10/03/18 [History Confirmed 08/02/19 Last Taken 07/31/19 19:00] traMADol [Ultram] 100 mg TID 10/03/18 [History Confirmed 08/02/19 Last Taken 07/31/19 19:00] lovastatin 20 mg tablet 60 mg PO QHS tab 07/17/19 [History Confirmed 08/02/19 Last Taken 07/31/19 19:00] Hysingla ER 60 mg DAILY 08/01/19 [History Confirmed 08/02/19 Last Taken 07/31/19 08:00] Omeprazole [PriLOSEC] 20 mg PO DAILY 08/01/19 [History Confirmed 08/02/19 Last Taken 07/31/19 08:00] Ondansetron [Zofran ODT] 8 mg SL Q4-6HP PRN 08/01/19 [History Confirmed 08/02/19 Last Taken Unknown] Calcium Carbonate/Vitamin D3 [Calcium 500+D Tablet Chew] 2 each PO BID 08/02/19 [History Confirmed 08/02/19 Last Taken 07/31/19 13:00] Cetirizine HCl [Zyrtec] 10 mg PO PRN PRN 08/02/19 [History Confirmed 08/02/19 Last Taken Unknown] Empagliflozin [Jardiance] 25 mg PO DAILY 08/02/19 [History Confirmed 08/02/19 Last Taken 07/31/19 08:00] Pantoprazole [Protonix] 40 mg PO QAMAC 08/02/19 [History Confirmed 08/02/19 Last Taken 07/31/19 08:00] Medical - DS: Hosp Hospital Course: Ms. Li is a 49 year old F 49-year-old female presents the ED with abdominal pain nausea vomiting diarrhea since this morning. Abdominal pain is described as crampy and she is a watery diarrhea. Clear emesis. She feels like she is a diarrhea 50 times. Vomiting less frequent. She has been around sick grandchildren with cough and sore throats. However she does have gastroparesis has had nausea vomiting like this this in the past. She was given IV fluids and multiple antiemetics but continued to have nausea vomiting and she did not feel like she could take care of herself at home and is unable to keep anything down. She did have a sore throat similar to her kids past couple days. And she was having increased burping which she says she has when she develops her flares of her gastroparesis and felt it was coming on. However was relatively fine going to bed yesterday but this morning when she woke up she had nausea vomiting and diarrhea. No fevers or chills. No coughing or shortness of breath. Diarrhea is clear. 08/02 Feeling better. No nausea vomitus morning. But did have diarrhea overnight. Was able to get a little bit of sleep. Still very tired and weak. C. difficile negative and fecal WBCs noted but rare. Abdominal muscle wall inspection machine tender from vomiting but improved. 08/03 Tolerating diet, no nausea vomiting. Stable for discharge. Discharge diagnosis: Intractable nausea vomiting from gastroparesis versus gastroenteritis diarr Secondary discharge diagnosis: Volume depletion diabetes with neuropathy fibromyalgia depression anxiety obesity hypertension opioid dependence hypothyroidism GERD fatty liver - Time Spent with Patient Total time spent providing and/or coordinating discharge services: Greater than 30 minutes Medical - DS: Exam - Constitutional Vitals: Vital Signs Temp Pulse Pulse Resp BP BP Pulse Ox 08/02/19 04:24 98.2 F 107 H 18 122/70 98 08/02/19 00:17 98.7 F 97 H 17 125/73 98 08/01/19 23:55 95 H 99 08/01/19 23:38 157/99 08/01/19 23:01 97 H 160/84 97 08/01/19 22:01 96 H 156/91 98 08/01/19 21:49 97 H 100 08/01/19 21:39 96 H 149/91 98 08/01/19 21:14 109 H 153/81 97 08/01/19 21:01 99 H 12 145/84 98 08/01/19 20:29 107 H 17 159/96 97 08/01/19 20:01 96 H 11 L 159/96 97 08/01/19 19:55 102 H 12 156/81 98 08/01/19 19:15 98 H 11 L 156/81 99 08/01/19 18:47 87 13 122/78 99 08/01/19 18:32 90 17 114/68 98 08/01/19 18:17 83 17 128/81 100 08/01/19 16:32 97.9 F 101 H 28 H 119/82 98 Intake and Output 08/01/19 08/02/19 08/02/19 21:59 05:59 13:59 Intake Total 1082 1000 Output Total 200 Balance 1082 800 Intake: IV 1082 1000 Sodium Chloride 0.9% 1,000 ml @ 1000 1000 Wide Open IV BOLUS ONE Rx#: [id number] Output: Stool 200 Other: Stool Size Moderate Stool Color Green Stool Consistency Liquid Watery # Bowel Movements 1 Weight 117.934 kg 117.072 kg Medical - DS: Data Labs on day of discharge: Labs from last 24 hours 08/02/19 08/02/19 08/02/19 04:44 04:44 04:44 WBC 8.0 RBC 4.26 Hgb 12.9 Hct 38.1 POC Hct MCV 89.4 MCH 30.3 MCHC 33.9 RDW 13.6 Plt Count 246 MPV 7.9 Gran % 69.0 Lymph % (Auto) 21.5 [place] % (Auto) 8.4 Eos % (Auto) 0.9 Baso % (Auto) 0.2 Gran # 5.5 Lymph # (Auto) 1.7 [place] # (Auto) 0.7 Eos # (Auto) 0.1 Baso # (Auto) 0 VBG Lactic Acid POC Sodium Sodium 139 POC Potassium Potassium 3.3 POC Chloride Chloride 103 Carbon Dioxide 19 L POC Total CO2 Anion Gap 17.0 H POC BUN BUN 9 Creatinine 0.6 POC Creatinine GFR Calculation 106 Glucose 154 H POC Glucose Uric Acid 6.1 Calcium 8.7 POC WB Ioniz Calcium Phosphorus 2.3 L Magnesium 1.8 Total Bilirubin 0.7 Direct Bilirubin < 0.2 GGT 44 H AST 36 ALT 50 H Alkaline Phosphatase 79 Lactate Dehydrogenase 175 Total Protein 7.3 Albumin 4.4 Globulin 2.9 Albumin/Globulin Ratio 1.5 Triglycerides 196 H Amylase Lipase TSH 1.38 Urine Color Urine Appearance Urine pH Ur Specific [place] Urine Protein Urine Glucose (UA) Urine Ketones Urine Occult Blood Urine Nitrate Urine Bilirubin Urine Urobilinogen Ur Leukocyte Esterase Urine RBC Urine WBC Ur Squamous Epith Cells Urine Bacteria Urine Mucus Urine Yeast (Budding) Ur Culture Indicated? 08/01/19 08/01/19 08/01/19 17:49 17:36 17:36 WBC RBC Hgb Hct POC Hct 46.0 MCV MCH MCHC RDW Plt Count MPV Gran % Lymph % (Auto) [place] % (Auto) Eos % (Auto) Baso % (Auto) Gran # Lymph # (Auto) [place] # (Auto) Eos # (Auto) Baso # (Auto) VBG Lactic Acid 2.2 H POC Sodium 141 Sodium 141 POC Potassium 3.6 Potassium 3.7 POC Chloride 106 Chloride 101 Carbon Dioxide 18 L POC Total CO2 19 L Anion Gap 22.0 H POC BUN 11 BUN 11 Creatinine 0.7 POC Creatinine 0.6 GFR Calculation 100 Glucose 159 H POC Glucose 160 H Uric Acid Calcium 9.8 POC WB Ioniz Calcium 1.12 L Phosphorus Magnesium 1.9 Total Bilirubin 1.0 Direct Bilirubin GGT AST 50 H ALT 64 H Alkaline Phosphatase 93 Lactate Dehydrogenase Total Protein 8.2 Albumin 4.8 Globulin 3.4 Albumin/Globulin Ratio 1.4 Triglycerides Amylase 43 Lipase 26 TSH Urine Color Urine Appearance Urine pH Ur Specific [place] Urine Protein Urine Glucose (UA) Urine Ketones Urine Occult Blood Urine Nitrate Urine Bilirubin Urine Urobilinogen Ur Leukocyte Esterase Urine RBC Urine WBC Ur Squamous Epith Cells Urine Bacteria Urine Mucus Urine Yeast (Budding) Ur Culture Indicated? 08/01/19 08/01/19 17:36 17:30 WBC 8.6 RBC 5.10 Hgb 15.1 H Hct 45.0 POC Hct MCV 88.2 MCH 29.7 MCHC 33.7 RDW 12.8 Plt Count 276 MPV 8.1 Gran % 84.7 H Lymph % (Auto) 10.4 L [place] % (Auto) 4.6 Eos % (Auto) 0.1 Baso % (Auto) 0.2 Gran # 7.3 Lymph # (Auto) 0.9 L [place] # (Auto) 0.4 Eos # (Auto) 0 Baso # (Auto) 0 VBG Lactic Acid POC Sodium Sodium POC Potassium Potassium POC Chloride Chloride Carbon Dioxide POC Total CO2 Anion Gap POC BUN BUN Creatinine POC Creatinine GFR Calculation Glucose POC Glucose Uric Acid Calcium POC WB Ioniz Calcium Phosphorus Magnesium Total Bilirubin Direct Bilirubin GGT AST ALT Alkaline Phosphatase Lactate Dehydrogenase Total Protein Albumin Globulin Albumin/Globulin Ratio Triglycerides Amylase Lipase TSH Urine Color Yellow Urine Appearance Clear Urine pH 5.0 Ur Specific [place] 1.036 H Urine Protein 100 A Urine Glucose (UA) >=500 A Urine Ketones 80 A Urine Occult Blood Neg Urine Nitrate Neg Urine Bilirubin Neg Urine Urobilinogen Neg Ur Leukocyte Esterase Neg Urine RBC 1 Urine WBC 1 Ur Squamous Epith Cells 4 Urine Bacteria Few A Urine Mucus Few Urine Yeast (Budding) Few A Ur Culture Indicated? Yes Medical - DS: A/P - Patient/Caregiver Discharge Instructions Activity: increase activity as tolerated Diet: Low Fat (small frequent meals, insoluble fiber) - Follow up Plan Follow up with: Janet Allen [Primary Care Provider] - Disposition: Home, Self-Care Prognosis: Fair Rehab Potential: Fair Overall status at discharge: patient is progressing back to baseline Medical - DS: Qual - VTE Deep Vein Thrombosis/Pulmonary Embolism Present on Admission: No
[2019-08-02] MEDS ORDERED: METOCLOPRAMIDE 5 MG TABLET PO SCH (18:00)
[2019-08-02] MEDS ORDERED: METOCLOPRAMIDE 10 MG TABLET ONE (18:28)
[2019-08-02] MEDS: ONDANSETRON 4 MG/2 ML VIAL IV PRN (19:37)
[2019-08-02] MEDS ORDERED: SIMVASTATIN 20 MG TABLET PO SCH (21:00)
[2019-08-03] MEDS: METOCLOPRAMIDE 10 MG TABLET PO SCH ×3 (00:12→11:54)
[2019-08-03] MEDS: METHOCARBAMOL 500 MG TABLET PO PRN ×2 (00:16→06:05)
[2019-08-03] MEDS: traMADol 50 MG TABLET PO PRN ×2 (02:01→08:12)
[2019-08-03] MEDS: ONDANSETRON 4 MG/2 ML VIAL IV PRN ×2 (04:50→11:43)
[2019-08-03] MEDS: 0.9 % SODIUM CHLORIDE 10 ML SYRINGE IV SCH (04:50)
[2019-08-03] MEDS: LEVOTHYROXINE 50 MCG TABLET PO SCH (07:27)
[2019-08-03 07:28] LABS: ALT/SGPT 69 U/l (0-40); AST/SGOT 71 U/l (0-37); Albumin 3.8 gm/dL (3.2-5.2); Albumin/Globulin Ratio 1.3 (1.0-2.3); Alkaline Phosphatase 73 U/L (39-117); Bilirubin,Direct < 0.2 mg/dL (0.0-0.3); Bilirubin,Total 0.5 mg/dL (0.0-1.0); Blood Urea Nitrogen 6 mg/dl (6-20); Carbon Dioxide 22 mmol/L (22-30); Chloride 106 mmol/L (96-108); Globulin 2.9 gm/dL (2.2-3.7); Glomerular Filtration Rate 100; Glucose 137 mg/dL (70-105); Lactate Dehydrogenase 189 U/L (94-250); Phosphorous 2.2 mg/dL (2.7-4.5); Triglycerides 233 mg/dl (<150)
[2019-08-03] MEDS: INSULIN LISPRO 1 UNIT/0.01 ML UNIT SQ SCH ×2 (07:30→11:54)
[2019-08-03] MEDS ORDERED: PANTOPRAZOLE 40 MG TABLET PO SCH (07:30)
[2019-08-03] MEDS ORDERED: BUTALB/ACETAMINOPHEN/CAFFEINE 1 TABLET PO ONE (07:51)
[2019-08-03] MEDS: METOPROLOL TARTRATE 50 MG TABLET PO SCH (08:05)
[2019-08-03] MEDS: GABAPENTIN 300 MG CAPSULE PO SCH (08:05)
[2019-08-03] MEDS: LOSARTAN 50 MG TABLET PO SCH (08:05)
[2019-08-03] MEDS: HYDROCODONE BITARTRATE 60 MG PO SCH (08:06)
[2019-08-03] MEDS: ENOXAPARIN 40 MG/0.4 ML SYRINGE SQ SCH (08:13)
[2019-08-03] MEDS ORDERED: PATIENTS OWN MEDICATION 1 DOSE MISCELL SUB-Q SCH (09:00)
[2019-08-03] MEDS ORDERED: LEVOFLOXACIN 750 MG/150 ML BAG IV ONE (09:00)
[2019-08-03] MEDS ORDERED: INSULIN GLARGINE, HUMAN 1 UNIT/0.01 ML SQ SCH (09:00)
[2019-08-03] MEDS ORDERED: EMPAGLIFLOZIN 25 MG PO SCH (09:00)
--- NOTE | 2019-08-03 09:22 | Internal Med Progress Note ---
Medical - PN: Subj Patient information: Note initiated : 08/03/19 at 9:21 am Service Date, if different from initiated Date: [] Patient: Genie Li 49 y/o F admitted on 08/02/19 for Diarrhea. Chief Complaint: [] Interval history: History of present illness: Ms. Li is a 49 year old F 49-year-old female presents the ED with abdominal pain nausea vomiting diarrhea since this morning. Abdominal pain is described as crampy and she is a watery diarrhea. Clear emesis. She feels like she is a diarrhea 50 times. Vomiting less frequent. She has been around sick grandchildren with cough and sore throats. However she does have gastroparesis has had nausea vomiting like this this in the past. She was given IV fluids and multiple antiemetics but continued to have nausea vomiting and she did not feel like she could take care of herself at home and is unable to keep anything down. She did have a sore throat similar to her kids past couple days. And she was having increased burping which she says she has when she develops her flares of her gastroparesis and felt it was coming on. However was relatively fine going to bed yesterday but this morning when she woke up she had nausea vomiting and diarrhea. No fevers or chills. No coughing or shortness of breath. Diarrhea is clear. 08/02 Feeling better. No nausea vomitus morning. But did have diarrhea overnight. Was able to get a little bit of sleep. Still very tired and weak. C. difficile negative and fecal WBCs noted but rare. 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 08/03 Had a headache this morning. She has history of migraines. Fioricet improved. Wanting to advance her diet. Will advance to full liquid. Urine culture with Klebsiella greater than 100,000. Diarrhea improved. Review of Systems: denies headache/fever/chills/nausea/vomiting/chest pain/cough/dyspnea. Otherwise see above. - Constitutional Vitals: Vital Signs Temp Pulse Resp BP Pulse Ox 97.8 F 68 14 117/71 95 08/03/19 07:37 08/03/19 07:37 08/03/19 07:37 08/03/19 07:37 08/03/19 07:37 Period Temp Pulse Resp BP Sys/Null Pulse Ox Last 24 Hr 97.2 F-99.3 F 68-85 14-20 110-123/61-77 95-97 Intake and Output 08/02/19 08/03/19 08/03/19 21:59 05:59 13:59 Intake Total 1350 1100 Output Total 2200 700 Balance -850 400 Weight 118.206 kg Intake & Output: Intake & Output 08/02/19 08/03/19 08/03/19 21:59 05:59 13:59 Intake Total 1350 1100 Output Total 2200 700 Balance -850 400 Weight 118.206 kg Intake: Oral 1350 1100 Output: Void Amount 1250 700 Urine/Stool Mix 700 Stool 250 Other: Meal Lunch Percent of Meal Consumed 100% Feeding Ability Independent Urine Color Pale Bright Yellow Urine Odor Normal Stool Size Small Stool Color Green Stool Consistency Liquid Loose # Voids 1 Exam: General: Alert, Awake, No acute Distress, obese Eyes/N/T: EOMI, Head/Neck: neck supple, CV: RRR, 1/6 SM, Pulm: Clear b/l, no wheezing/rhonchi/rales Abd: soft, minimal TTP generalized, BS x4 Ext: no clubbing/cyanosis/edema Neuro: Alert, no focal deficits, moves all extremities, Skin: warm/dry Medical - PN: Obj Da - Labs CBC & Chem 7: 08/02/19 04:44 08/03/19 04:32 Labs: Abnormal Lab Results 08/03/19 08/02/19 08/01/19 04:32 04:44 17:36 Hgb Gran % Lymph % (Auto) Lymph # (Auto) VBG Lactic Acid 2.2 H Carbon Dioxide 19 L POC Total CO2 Anion Gap 17.0 H Glucose 137 H 154 H POC Glucose POC WB Ioniz Calcium Phosphorus 2.2 L 2.3 L GGT 41 H 44 H AST 71 H ALT 69 H 50 H Triglycerides 233 H 196 H Ur Specific [place] Urine Protein Urine Glucose (UA) Urine Ketones Urine Bacteria Urine Yeast (Budding) 08/01/19 08/01/19 08/01/19 17:36 17:36 17:30 Hgb 15.1 H Gran % 84.7 H Lymph % (Auto) 10.4 L Lymph # (Auto) 0.9 L VBG Lactic Acid Carbon Dioxide 18 L POC Total CO2 19 L Anion Gap 22.0 H Glucose 159 H POC Glucose 160 H POC WB Ioniz Calcium 1.12 L Phosphorus GGT AST 50 H ALT 64 H Triglycerides Ur Specific [place] 1.036 H Urine Protein 100 A Urine Glucose (UA) >=500 A Urine Ketones 80 A Urine Bacteria Few A Urine Yeast (Budding) Few A Meds: Medications Acetaminophen (Tylenol) 650 mg PO Q6HP PRN PRN Reason: PAIN/FEVER > 101 Last Admin: 08/02/19 18:33 Dose: 650 mg Documented by: Hydrocodone Bitart/Acetaminophen ([place] 5/325mg) 1 tab PO Q4HP PRN PRN Reason: PAIN LEVEL 3-6 Albuterol/Ipratropium (Duoneb) 3 ml NEB Q4HP PRN PRN Reason: Shortness Of Breath Dextrose (Dextrose 50%) 0 ml IV UD PRN PRN Reason: Hypoglycemia Diagnostic Test (Pha) (Accu-Chek) 1 each FS ACHS [facility] Last Admin: 08/03/19 07:30 Dose: 1 each Documented by: Diphenhydramine HCl (Benadryl) 25 mg IV Q6HP PRN PRN Reason: Allergic Symptoms or nausea/vo Last Admin: 08/02/19 19:36 Dose: 25 mg Documented by: Enoxaparin Sodium (Lovenox) 40 mg SQ DAILY [facility] Last Admin: 08/03/19 08:13 Dose: Not Given Documented by: Gabapentin (Neurontin) 900 mg PO TID [facility] Last Admin: 08/03/19 08:05 Dose: 900 mg Documented by: Glucose (Insta-Glucose) 15 gm PO PRN PRN PRN Reason: Hypoglycemia Hydromorphone HCl (Dilaudid) 0.25 - 1 mg IV Q2HP PRN; Protocol PRN Reason: Per Pain Protocol Potassium Chloride 40 meq/ (Dextrose) 520 mls @ 130 mls/hr IV UD PRN PRN Reason: Potassium < 3 Magnesium Sulfate (Magnesium Sulfate) 2 gm in 50 mls @ 50 mls/hr IV UD PRN PRN Reason: Magnesium </= 1.6 Levofloxacin (Levaquin) 750 mg in 150 mls @ 100 mls/hr IV ONCE ONE Stop: 08/03/19 10:29 Insulin Glargine (Lantus) 80 unit SQ DAILY [facility] Last Admin: 08/03/19 08:13 Dose: Not Given Documented by: Insulin Human Lispro (Humalog) 0 unit SQ ACHS [facility]; Protocol Last Admin: 08/03/19 07:30 Dose: Not Given Documented by: Labetalol HCl (Trandate) 0 mg IV Q2HP PRN PRN Reason: Hypertension Levothyroxine Sodium (Synthroid) 50 mcg PO ACB [facility] Last Admin: 08/03/19 07:27 Dose: 50 mcg Documented by: Loperamide HCl (Imodium) 2 mg PO PRN PRN PRN Reason: Diarrhea Lorazepam (Ativan) 0.5 mg IV Q6HP PRN PRN Reason: ANXIETY/SEDATION Losartan Potassium (Cozaar) 100 mg PO DAILY [facility] Last Admin: 08/03/19 08:05 Dose: 100 mg Documented by: Methocarbamol (Robaxin) 500 mg PO QIDP PRN PRN Reason: Muscle Spasm Last Admin: 08/03/19 06:05 Dose: 500 mg Documented by: Metoclopramide HCl (Reglan) 5 mg PO Q6 [facility] Last Admin: 08/03/19 06:05 Dose: 5 mg Documented by: Metoprolol Tartrate (Lopressor) 50 mg PO BID [facility] Last Admin: 08/03/19 08:05 Dose: 50 mg Documented by: Ondansetron HCl (Zofran) 4 mg IV Q4HP PRN PRN Reason: Nausea And Vomiting Last Admin: 08/03/19 04:50 Dose: 4 mg Documented by: Pantoprazole Sodium (Protonix) 40 mg PO QAMAC [facility] Last Admin: 08/03/19 07:27 Dose: 40 mg Documented by: Hydrocodone Bitartrate [Hysingla Er] 60 Mg Tab 1 dose PO DAILY [facility] Last Admin: 08/03/19 08:06 Dose: 1 dose Documented by: Empagliflozin ( (Jardiance) 25 Mg Tab) 1 dose PO DAILY [facility] Last Admin: 08/03/19 08:06 Dose: 1 dose Documented by: Potassium Chloride (Kdur) 40 meq PO UD PRN PRN Reason: Potssium is 3-3.5 Potassium Chloride (Kdur) 40 meq PO UD PRN PRN Reason: Potassium < 3 Promethazine HCl (Phenergan) 25 mg [place] Q6HP PRN PRN Reason: Nausea And Vomiting Simvastatin (Zocor) 20 mg PO HS [facility] Last Admin: 08/02/19 21:52 Dose: 20 mg Documented by: Sodium Chloride (Saline Flush) 10 ml IV Q8 [facility] Last Admin: 08/03/19 04:50 Dose: 10 ml Documented by: Tramadol HCl (Ultram) 100 mg PO TIDP PRN PRN Reason: Pain Last Admin: 08/03/19 08:12 Dose: 100 mg Documented by: Medical - PN: A/P - Time Spent With Patient Total time spent is greater than 50% in coordination of care (as documented) at patient's floor/unit and/or counseling patient: - Narrative A/P Narrative: A: *Intractable nausea/vomiting & diarrhea: 2/2 gastroparesis versus gastroenteritis -CT a/p no acute path; -improving *Volume depletion w/hemoconcentration: improved *Klebsiella pneumoniae urine culture positive >100K: *DM w/Neuropathy and Gastroparesis: *Fibromyalgia/depression/anxiety: *Obesity: *HTN: *Opioid dependence: *Hypothyroidism: *GERD: *Fatty liver: P: -IVF -Levaquin -clear liquids, gradually advance to low fat/small frequent/insoluble fiber -Antiemetics including Benadryl and Reglan -imodium -cont home ARB/BB, hold aldactone -SSI and home basal insulin -ppx: lovenox/home ppi Full code Medical - PN: Qual - VTE Deep Vein Thrombosis/Pulmonary Embolism Present on Admission: No
== END 2019-08-03 15:26 | disposition home or self-care (01) ==
LOC: MEDSUR 16:32 → ED 16:32 → MEDSUR 08-02 00:17
PROVIDERS: ADMIT Internal Medicine; ATTEND Internal Medicine

== ENCOUNTER 2024-07-13 04:27 | Inpatient (IN) ==
[2024-07-02 14:25] LABS: Basophils # (Auto) 0.04 K/mcL (0.00-0.30); Basophils % (Auto) 0.6 % (0.0-2.0); Eosinophils # (Auto) 0.13 K/mcL (0.00-0.70); Eosinophils % (Auto) 1.9 % (0.0-7.0); Hematocrit 40.4 % (34.1-44.9); Hemoglobin 13.6 g/dL (11.2-15.7); Lymphocytes # (Auto) 1.86 K/mcL (1.50-4.80); Lymphocytes % (Auto) 27.9 % (15.5-49.0); Mean Cell Volume 90.8 fL (80.0-100.0); Mean Corpuscular HGB Conc 33.7 g/dL (31.0-36.0); Mean Platelet Volume 9.3 fL (8.8-12.5); Monocytes # (Auto) 0.37 K/mcL (0.10-0.90); Monocytes % (Auto) 5.5 % (1.0-12.0); Platelet Count 253 K/mcL (140-440); RBC 4.45 M/mcL (3.59-5.38); Red Cell Distribution Width 12.3 % (11.5-14.5); WBC 6.7 K/mcL (4.5-11.0)
[2024-07-02 14:54] LABS: ALT/SGPT 93 U/L (<40); AST/SGOT 64 U/L (<32); Albumin 4.7 gm/dL (3.2-5.2); Albumin/Globulin Ratio 1.7 (1.0-2.3); Alkaline Phosphatase 118 U/L (39-117); Bilirubin,Total 0.3 mg/dL (0.1-1.0); Blood Urea Nitrogen 14 mg/dL (6-20); Calcium 10.1 mg/dL (8.6-10.4); Carbon Dioxide 27 mmol/L (22-30); Chloride 100 mmol/L (96-108); Globulin 2.7 gm/dL (2.2-3.7); Glomerular Filtration Rate 97; Glucose 143 mg/dL (70-105); Potassium 4.6 mmol/L (3.3-5.1); Sodium 138 mmol/L (133-145)
[2024-07-02 15:54] LABS: Appearance,Urine HAZY (Clear); Bacteria,Urine FEW /hpf (0); Bilirubin,Urine Negative (Negative); Color,Urine YELLOW; Glucose,Urine (UA) >=500 mg/dL (Negative); Ketones,Urine Negative (Negative); Leukocyte Esterase,Urine 25 /uL (Negative); Nitrate,Urine Negative (Negative); Protein,Urine Negative (Negative); Urine Blood Negative (Negative); Urine Budding Yeast FEW /hpf; Urine RBC 5 /hpf (0-3); Urine Squamous Epithelial Cell 0 /hpf (0-4); Urine WBC 26 /hpf (0-4); Urobilinogen,Urine Negative
[2024-07-03 08:01] LABS: Hemoglobin A1C 7.3 % Hgb (4.0-6.0)
[2024-07-13] MEDS ORDERED: PHENYLephrine 1 MG/10 ML SYRINGE (ANEST) ONE ×2 (07:04→08:27)
[2024-07-13] MEDS ORDERED: TRANEXAMIC ACID 1,000 MG/10 ML VIAL ONE (07:04)
[2024-07-13] MEDS ORDERED: PROPOFOL 200 MG/20 ML VIAL IV ONE ×2 (07:04→09:39)
[2024-07-13] MEDS ORDERED: MIDAZOLAM 2 MG/2 ML VIAL ONE (07:04)
[2024-07-13] MEDS ORDERED: fentaNYL 100 MCG/2 ML VIAL ONE ×2 (07:04→07:57)
[2024-07-13] MEDS ORDERED: DEXAMETHASONE 10 MG/ML VIAL ONE (07:04)
[2024-07-13] MEDS ORDERED: LIDOCAINE 2% PF 5 ML VIAL ONE ×2 (07:04→07:53)
[2024-07-13] MEDS ORDERED: ONDANSETRON 4 MG/2 ML VIAL ONE (07:04)
[2024-07-13] MEDS ORDERED: GLYCOPYRROLATE 0.2 MG/ML VIAL IV ONE ×2 (07:04→10:17)
[2024-07-13] MEDS ORDERED: KETAMINE 50 MG/ML Syringe IV ONE ×2 (07:05→07:53)
[2024-07-13] MEDS: ceFAZolin 2 GM in DEXTROSE 5% IN WATER 50 ML IV SCH (07:31)
[2024-07-13] MEDS ORDERED: SUGAMMADEX SODIUM 200 MG/2 ML VIAL IV ONE (07:48)
[2024-07-13] MEDS ORDERED: MAGNESIUM SULFATE 2 GM/50 ML BAG IV ONE ×2 (07:52→07:53)
[2024-07-13] MEDS ORDERED: DEXMEDETOMIDINE HCL 200 MCG/2 ML VIAL ONE (07:54)
[2024-07-13] MEDS ORDERED: ePHEDrine 50 MG/ML AMPUL IV ONE (08:08)
[2024-07-13] MEDS ORDERED: 0.9 % SODIUM CHLORIDE 100 ML IV ONE (08:17)
[2024-07-13] MEDS ORDERED: VASOPRESSIN 20 UNIT/ML VIAL ONE (08:17)
[2024-07-13] MEDS ORDERED: HYDROmorphone 0.5 MG/0.5 ML SYRINGE ONE ×2 (08:17→11:51)
[2024-07-13] MEDS ORDERED: LACTATED RINGERS 250 ML IV PRN (10:59)
[2024-07-13] MEDS ORDERED: ONDANSETRON 4 MG/2 ML VIAL IV PRN (10:59)
[2024-07-13] MEDS ORDERED: BENZOCAINE/MENTHOL 1 LOZENGE PO PRN ×2 (10:59→11:54)
[2024-07-13] MEDS ORDERED: IPRATROPIUM/ALBUTEROL 3 ML AMPUL.NEB NEB PRN (10:59)
[2024-07-13] MEDS ORDERED: DROPERIDOL 5 MG/2 ML VIAL IV PRN (10:59)
[2024-07-13] MEDS: THROMBIN (BOVINE) 5,000 UNIT VIAL TOPICAL ONE (11:16)
[2024-07-13] MEDS: GELATIN SPONGE,ABSORBABLE 1 EACH SPONGE TOPICAL ONE (11:16)
[2024-07-13] MEDS ORDERED: ceFAZolin 1 GM VIAL ONE (11:47)
[2024-07-13] MEDS ORDERED: KETOROLAC 30 MG/ML VIAL ONE (11:58)
[2024-07-13] MEDS: VANCOMYCIN 1 GM VIAL TOPICAL SCH (12:03)
[2024-07-13] MEDS: BUPIVACAINE 0.25% 50 ML VIAL IJ ONE (12:03)
[2024-07-13] MEDS: ACETAMINOPHEN 1,000 MG/100 ML BAG IV ONE (12:23)
[2024-07-13] MEDS: METHOCARBAMOL 1,000 MG/10 ML VIAL IV PRN (12:31)
[2024-07-13] MEDS: fentaNYL 100 MCG/2 ML VIAL IV PRN (13:01)
[2024-07-13] MEDS: HYDROmorphone 0.5 MG/0.5 ML SYRINGE IV PRN (13:11)
[2024-07-13] MEDS: LORazepam 2 MG/ML VIAL IV ONE (13:44)
[2024-07-13] MEDS: 0.9 % SODIUM CHLORIDE 10 ML SYRINGE IV SCH (14:26)
[2024-07-13] MEDS: HYDROmorphone 1 MG/ML SYRINGE IV PRN (14:37)
[2024-07-13] MEDS: LACTATED RINGERS 1,000 ML IV SCH (14:39)
[2024-07-13] MEDS: 0.9 % SODIUM CHLORIDE 1,000 ML IV SCH (14:43)
[2024-07-13] MEDS ORDERED: NARATRIPTAN 2.5 MG SCH (14:45)
[2024-07-13] MEDS ORDERED: CETIRIZINE 10 MG TABLET PO PRN (15:09)
[2024-07-13] MEDS ORDERED: ONDANSETRON 4 MG ODT TABLET SL PRN (15:11)
[2024-07-13] MEDS: ceFAZolin 1 GM VIAL IV SCH (15:13)
[2024-07-13] MEDS: traMADol 50 MG TABLET PO SCH (16:46)
[2024-07-13] MEDS: POTASSIUM CHLORIDE 10 MEQ TABLET PO SCH (17:37)
[2024-07-13] MEDS: METHOCARBAMOL 500 MG TABLET PO SCH (17:37)
[2024-07-13] MEDS: GABAPENTIN 300 MG CAPSULE PO SCH (20:50)
[2024-07-13] MEDS: METOPROLOL TARTRATE 50 MG TABLET PO SCH (20:51)
[2024-07-14] MEDS: HYDROmorphone 2 MG TABLET PO PRN (00:57)
[2024-07-14] MEDS: ceFAZolin 1 GM VIAL ONE (02:28)
[2024-07-14 06:20] LABS: Hematocrit 31.6 % (34.1-44.9)
[2024-07-14 06:27] LABS: Blood Urea Nitrogen 18 mg/dL (6-20); Calcium 8.2 mg/dL (8.6-10.4); Carbon Dioxide 22 mmol/L (22-30); Chloride 103 mmol/L (96-108); Glomerular Filtration Rate 102; Glucose 143 mg/dL (70-105); Potassium 4.3 mmol/L (3.3-5.1); Sodium 137 mmol/L (133-145)
[2024-07-14] MEDS: OMEPRAZOLE 20 MG CAPSULE PO SCH (06:52)
[2024-07-14] MEDS: LEVOTHYROXINE 50 MCG TABLET PO SCH (06:53)
[2024-07-14] MEDS: FUROSEMIDE 20 MG TABLET PO SCH (08:09)
[2024-07-14] MEDS: metFORMIN 500 MG TABLET PO SCH (08:09)
[2024-07-14] MEDS: SPIRONOLACTONE 25 MG TABLET PO SCH (08:10)
[2024-07-14] MEDS: EZETIMIBE 10 MG TABLET PO SCH (08:10)
[2024-07-14] MEDS: LOSARTAN 50 MG TABLET PO SCH (08:10)
[2024-07-14] MEDS: Empagliflozin [Jardiance] 25 mg tablet PO SCH (08:11)
[2024-07-14] MEDS: HYDROCODONE BITARTRATE 60 MG PO SCH (08:12)
[2024-07-14] MEDS: LOVASTATIN 20 MG TABLET PO SCH (08:26)
[2024-07-15 06:33] LABS: Hematocrit 32.8 % (34.1-44.9); Hemoglobin 10.9 g/dL (11.2-15.7)
[2024-07-15] MEDS: CEFEPIME 2 GM VIAL IV ONE (07:14)
[2024-07-15] MEDS: CIPROFLOXACIN 500 MG TABLET PO SCH (08:37)
[2024-07-15] MEDS: SULFAMETHOXAZOLE/TRIMETHOPRIM 1 TABLET PO SCH (08:38)
[2024-07-15] MEDS: HYDROCODONE BITARTRATE 60 MG PO SCH (10:49)
[2024-07-15] MEDS: DOCUSATE SODIUM 100 MG CAPSULE PO PRN (12:47)
[2024-07-15] MEDS: KETOROLAC 30 MG/ML VIAL IV ONE (12:47)
[2024-07-16 06:37] LABS: Hematocrit 33.4 % (34.1-44.9)
[2024-07-16 06:38] LABS: Hemoglobin 11.1 g/dL (11.2-15.7)
[2024-07-20] MEDS ORDERED: [UNRECOGNIZED DRUG - OTHER] SUB-Q SCH (09:00)
== END 2024-07-16 13:12 | DRG 402 ==
LOC: MEDSUR 04:27 → EDSTATUS 07:30
PROVIDERS: ADMIT Orthopaedic Surgery Orthopaedic Surgery of the Spine; ATTEND Orthopaedic Surgery Orthopaedic Surgery of the Spine